=== PATIENT | female | born 1940 | race Caucasian/White ===

== ENCOUNTER 2018-08-19 02:42 | Inpatient (IN) | payer OTHER ==
[2018-08-19] MEDS ORDERED: METHYLPREDNISOLONE 125 MG INJ ONE (03:08)
[2018-08-19] MEDS ORDERED: LEVALBUTEROL 1.25 MG/3 ML NEB ONE (03:09)
[2018-08-19 03:54] LABS: Absolute Lymphocytes (CBC) 2.5 K/uL (0.7-4.9); Absolute Monocytes 0.6 K/uL (0.1-1.3); Absolute Neutrophil 7.1 K/uL (1.8-8.0); Basophils % 0.3 % (0-1.3); Eosinophils % 0.7 % (0-4.4); Hematocrit 41.1 % (36.0-45.0); Lymphocytes % 24.5 % (15.3-44.8); MPV 8.8 fL (7.6-11.3); Monocytes % 5.6 % (3.3-12.3); RBC Red Blood Cell Count 4.22 M/uL (3.86-4.86)
[2018-08-19 04:21] LABS: Magnesium 1.7 mg/dL (1.8-2.4); Troponin (Emerg Dept Use Only) 0.25 ng/mL (0.0-0.045)
[2018-08-19 04:22] LABS: Potassium 2.9 mmol/L (3.5-5.1)
[2018-08-19] MEDS ORDERED: ASPIRIN 81 MG CHEWABLE TABLET ONE (05:33)
[2018-08-19] MEDS ORDERED: MAGNESIUM SULFATE 1 gm IVPB 1 GM/100 ML BAG IV ONE (05:34)
[2018-08-19] MEDS ORDERED: POTASSIUM CL SA 10 MEQ TAB PO ONE (06:16)
[2018-08-19] MEDS ORDERED: FUROSEMIDE 20 MG/ 2ML VIAL ONE (06:16)
--- NOTE | 2018-08-19 06:28 | EDPHYS ---
Physician Documentation [facility] Name: Sita Diana Age: 77 yrs Sex: Female : 1940 Arrival Date: 08/19/2018 Time: 02:43 Bed 15 Private MD: ED Physician Matt Jefferson HPI: 08/19 02:51 This 77 yrs old Female presents to ER via Unassigned with complaints of sob, rn cough. 02:51 The patient has shortness of breath at rest, with light activity. Onset: The rn symptoms/episode began/occurred yesterday. Duration: The symptoms are continuous. The patient's shortness of breath is aggravated by exertion, light activity. Severity of symptoms: At their worst the symptoms were moderate in the emergency department the symptoms are unchanged. The patient has not experienced similar symptoms in the past. Patient reports has been having runny nose and clear cough, worsening sob over last day or so, + long time smoker but quit in 90s, no fever, no chest pain. No known heart or lung problems, has never been admitted to hospital for respiratory problem. . Historical: - Allergies: 02:40 No Known Allergies; jb4 - Home Meds: 02:40 Nexium Oral [Active]; jb4 - PMHx: 02:40 None; jb4 - PSHx: 02:40 bladde surgery.; jb4 - Immunization history:: Adult Immunizations unknown. - Social history:: Smoking status: Patient/guardian denies using tobacco, the patient reports quitting approximately 28 years ago. - Family history:: not pertinent. - Ebola Screening: : No symptoms or risks identified at this time. - Hospitalizations: : No recent hospitalization is reported. ROS: 02:51 Constitutional: Negative for fever, chills, and weight loss, Eyes: Negative for injury, rn pain, redness, and discharge, Neck: Negative for injury, pain, and swelling, Cardiovascular: Negative for chest pain Respiratory: + sob and cough Abdomen/GI: Negative for abdominal pain, nausea, vomiting, diarrhea, and constipation, MS/Extremity: Negative for injury and deformity, Skin: Negative for injury, rash, and discoloration, Neuro: + generalized weakness Exam: 02:51 Constitutional: Thin female, + tachypnea and wet sounding breaths Head/Face: rn Normocephalic, atraumatic. Eyes: Pupils equal round and reactive to light, extra-ocular motions intact. Lids and lashes normal. Conjunctiva and sclera are non-icteric and not injected. Cornea within normal limits. Periorbital areas with no swelling, redness, or edema. ENT: dry MM, no stridor Neck: Trachea midline, no thyromegaly or masses palpated, and no cervical lymphadenopathy. Supple, full range of motion without nuchal rigidity, or vertebral point tenderness. No Meningismus. Cardiovascular: Irregular rhythm, regular rate, no murmur Respiratory: + dminished breath sounds bilaterally, faint exp wheezing, + moderate tachypnea with labored breathing, speaking 4 word sentences Abdomen/GI: soft, non-tender MS/ Extremity: Pulses equal, no cyanosis. Neurovascular intact. Full, normal range of motion. Equal circumference. Neuro: Awake and alert, GCS 15, oriented to person, place, time, and situation. Cranial nerves II-XII grossly intact. Motor strength 5/5 in all extremities. Sensory grossly intact. Vital Signs: 02:40 BP 179 / 107; Pulse 108; Resp 28; Temp 99.7(O); Pulse Ox 89% on R/A; Weight 68.04 kg jb4 (R); Height 5 ft. 5 in. (165.10 cm); Pain 0/10; 03:30 BP 145 / 60; Pulse 102; Resp 34; Pulse Ox 96% on Nebulizer Mask; jb4 04:00 BP 125 / 62; Pulse 94; Resp 30; Pulse Ox 95% on R/A; jb4 04:45 BP 130 / 73; Pulse 102; Resp 24; Pulse Ox 95% on 3 lpm NC; jb4 06:15 BP 136 / 74; Pulse 94; Resp 25; Pulse Ox 94% on 3 lpm NC; jb4 08:00 BP 155 / 87; Pulse 88; Resp 18; Pulse Ox 94% on 3 lpm NC; ph 02:40 Body Mass Index 24.96 (68.04 kg, 165.10 cm) jb4 MDM: 02:48 Patient medically screened. rn 06:26 Differential diagnosis: Bronchitis CHF exacerbation, Chronic Obstructive Pulmonary rn Disease pneumonia, Pneumothorax pulmonary edema, Pulmonary Embolism. Data reviewed: vital signs, nurses notes, lab test result(s), EKG, radiologic studies, and as a result, I will admit patient. Counseling: I had a detailed discussion with the patient and/or guardian regarding: the historical points, exam findings, and any diagnostic results supporting the discharge/admit diagnosis, lab results, radiology results, the need for further work-up and treatment in the hospital. Response to treatment: the patient's symptoms have markedly improved after treatment, and as a result, I will admit patient. Admission orders: after a detailed discussion of the patient's condition and case, the admit orders are written by me. 08/19 02:49 Order name: Blood Culture Adult (2) 08/19 02:49 Order name: BMP; Complete Time: 04:38 rn 08/19 02:49 Order name: CBC with Diff; Complete Time: 04:38 rn 08/19 02:49 Order name: Magnesium; Complete Time: 04:38 08/19 02:49 Order name: NT PRO-BNP; Complete Time: 04:38 08/19 02:49 Order name: Troponin (emerg Dept Use Only); Complete Time: 04:38 08/19 02:50 Order name: Procalcitonin; Complete Time: 04:58 08/19 02:50 Order name: Flu; Complete Time: 04:38 08/19 07:25 Order name: Comprehensive Metabolic Panel [facility] 08/19 07:25 Order name: Comprehensive Metabolic Panel [facility] 08/19 07:25 Order name: Magnesium [facility] 08/19 07:25 Order name: Magnesium [facility] 08/19 07:25 Order name: Phosphorus [facility] 08/19 07:25 Order name: Phosphorus [facility] 08/19 02:49 Order name: XRAY CXR (1 view) 08/19 02:49 Order name: EKG; Complete Time: 02:50 08/19 04:39 Order name: CT Chest For PE Angio 08/19 07:25 Order name: CONS Physician Consult [facility] 08/19 07:25 Order name: NT PRO-BNP [facility] 08/19 07:25 Order name: NT PRO-BNP [facility] 08/19 07:25 Order name: Troponin I [facility] 08/19 07:25 Order name: Troponin I [facility] 08/19 07:25 Order name: Troponin I [facility] 08/19 07:26 Order name: Echo with Doppler [facility] 08/19 02:49 Order name: Cardiac monitoring; Complete Time: 03:09 rn 08/19 02:49 Order name: EKG - Nurse/Tech; Complete Time: 03:09 rn 08/19 02:49 Order name: IV Saline Lock; Complete Time: 03: rn 08/19 02:49 Order name: Labs collected and sent; Complete Time: 03:09 rn 08/19 02:49 Order name: O2 Per Protocol; Complete Time: 03: rn 08/19 02:49 Order name: O2 Sat Monitoring; Complete Time: 03: rn 08/19 07:26 Order name: CONS Physician Consult EDMS 08/19 07:26 Order name: Heart Healthy EDMS Administered Medications: 03:08 Drug: SOLU-Medrol 125 mg Route: IVP; Site: left antecubital; jb4 05:00 Follow up: Response: No adverse reaction jb4 03:08 Drug: Xopenex (3) 1.25 mg Route: Inhalation; jb4 05:00 Follow up: Response: No adverse reaction; Marked relief of symptoms; Wheezing diminishedjb4 05:35 Drug: Magnesium Sulfate 1 grams Route: IVPB; Infused Over: 1 hrs; Site: left jb4 antecubital; 06:38 Follow up: Response: No adverse reaction; IV Status: Completed infusion jb4 05:35 Drug: Aspirin Chewable Tablet 324 mg Route: PO; jb4 06:38 Follow up: Response: No adverse reaction jb4 05:40 Drug: Lasix 20 mg Route: IVP; Site: left antecubital; jb4 06:39 Follow up: Response: No adverse reaction jb4 05:40 Drug: Potassium Chloride 40 mEq Route: PO; jb4 06:39 Follow up: Response: No adverse reaction jb4 Disposition: 08/19/18 06:28 Hospitalization ordered by Kyler Aponte for Inpatient Admission. Preliminary diagnosis are Emphysema, unspecified, Pleural effusion, not elsewhere classified, Suspected pulmonary malignancy, Hypoxemia. - Bed requested for Telemetry/MedSurg (Inpatient). - Status is Inpatient Admission. ph - Condition is Stable. - Problem is new. - Symptoms have improved. UTI on Admission? No Signatures: Dispatcher [employer] EDOK Sahara Best Roman, MD MD rn Hall, Patricia, RN RN ph Bryson, James, RN RN jb4 Corrections: (The following items were deleted from the chart) 07:45 06:28 Hospitalization Ordered by Kyler Aponte MD for Inpatient Admission. Preliminary bd diagnosis is Emphysema, unspecified; Pleural effusion, not elsewhere classified; Suspected pulmonary malignancy; Hypoxemia. Bed requested for Telemetry/MedSurg (Inpatient). Status is Inpatient Admission. Condition is Stable. Problem is new. Symptoms have improved. UTI on Admission? No. rn 08:55 07:45 08/19/2018 06:28 Hospitalization Ordered by Kyler Aponte MD for Inpatient ph Admission. Preliminary diagnosis is Emphysema, unspecified; Pleural effusion, not elsewhere classified; Suspected pulmonary malignancy; Hypoxemia. Bed requested for Telemetry/MedSurg (Inpatient). Status is Inpatient Admission. Condition is Stable. Problem is new. Symptoms have improved. UTI on Admission? No. bd
--- NOTE | 2018-08-19 06:28 | ER ---
Nurse's Notes [facility] Name: Sita Diana Age: 77 yrs Sex: Female : 1940 Arrival Date: 08/19/2018 Time: 02:43 Bed 15 Private MD: Diagnosis: Emphysema, unspecified;Pleural effusion, not elsewhere classified;Suspected pulmonary malignancy;Hypoxemia Presentation: 08/19 02:40 Presenting complaint: EMS states: Pt reported difficulty breathing, denies prior jb4 medical history and just keeps saying I can't breathe I can't breathe. Rales and coarse crackles noted bilaterally. 89% on room air, given 09/01 breathing treatment sats increased to 95%. Transition of care: patient was not received from another setting of care. Onset of symptoms was August 19, 2018. 02:40 Method Of Arrival: EMS: [facility] jb4 02:40 Risk Assessment: Do you want to hurt yourself or someone else? Patient reports no jb4 desire to harm self or others. Initial Sepsis Screen: Does the patient meet any 2 criteria? HR > 90 bpm. Yes Does the patient have a suspected source of infection? No. Patient's initial sepsis screen is negative. Care prior to arrival: Medication(s) given: Albuterol Neb x 1, Atrovent Neb x 1, IV initiated. 20 GA, in the left antecubital area, Oxygen administered. via a nebulizer mask. 02:40 Acuity: CROW 2 jb4 Triage Assessment: 02:40 General: Appears distressed, uncomfortable, Behavior is cooperative, anxious. Pain: jb4 Denies pain. EENT: No signs and/or symptoms were reported regarding the EENT system. Neuro: Level of Consciousness is awake, alert, obeys commands, Oriented to person, place, time, situation. Cardiovascular: Heart tones S1 S2 present Patient's skin is warm and dry. Rhythm is sinus tachycardia. Respiratory: Airway is patent Respiratory effort is even, labored, Respiratory pattern is symmetrical, tachypnea Breath sounds are coarse bilaterally. Breath sounds with wheezes bilaterally. GI: No signs and/or symptoms were reported involving the gastrointestinal system. : No signs and/or symptoms were reported regarding the genitourinary system. Derm: Skin is intact, Skin is pink, warm \\T\\ dry. Musculoskeletal: Circulation, motion, and sensation intact. Historical: - Allergies: 02:40 No Known Allergies; jb4 - Home Meds: 02:40 Nexium Oral [Active]; jb4 - PMHx: 02:40 None; jb4 - PSHx: 02:40 bladde surgery.; jb4 - Immunization history:: Adult Immunizations unknown. - Social history:: Smoking status: Patient/guardian denies using tobacco, the patient reports quitting approximately 28 years ago. - Family history:: not pertinent. - Ebola Screening: : No symptoms or risks identified at this time. - Hospitalizations: : No recent hospitalization is reported. Screenin:40 Abuse screen: Denies threats or abuse. Nutritional screening: No deficits noted. jb4 Tuberculosis screening: No symptoms or risk factors identified. Fall Risk IV access (20 points). Total Martini Fall Scale indicates No Risk (0-24 pts). Assessment: 02:40 General: see triage assessment.. jb4 03:39 Reassessment: No changes from previously documented assessment. Reassessment: Patient jb4 and/or family updated on plan of care and expected duration. Pain level reassessed. Family at the bedside. Cardiovascular: Patient's skin is warm and dry. Rhythm is sinus tachycardia. Respiratory: Airway is patent Respiratory effort is even, labored, Respiratory pattern is symmetrical, tachypnea. 04:02 Reassessment: Patient and/or family updated on plan of care and expected duration. Pain jb4 level reassessed. General: Appears in no apparent distress. comfortable, Pt O2 at 96% on neb mask. Desats to 91% on room air. Place on 3 L NC. Sating at 95%.. Cardiovascular: Patient's skin is warm and dry. Rhythm is sinus tachycardia. Cardiovascular: Respiratory: Airway is patent Respiratory effort is even, labored, Respiratory pattern is symmetrical, tachypnea. Respiratory: Breath sounds are clear in left posterior upper lobe, right posterior upper lobe, left posterior lower lobe, right posterior middle lobe and right posterior lower lobe Breath sounds with rhonchi in right upper lobe, left upper lobe, right middle lobe, left lower lobe and right lower lobe. 05:00 Reassessment: Patient appears in no apparent distress at this time. Patient and/or jb4 family updated on plan of care and expected duration. Pain level reassessed. Patient is alert, oriented x 3, equal unlabored respirations, skin warm/dry/pink. Pt to CT. Cardiovascular: Patient's skin is warm and dry. Rhythm is sinus tachycardia. Respiratory: Airway is patent Respiratory effort is even, unlabored, Respiratory pattern is symmetrical, tachypnea. 06:39 Reassessment: Patient appears in no apparent distress at this time. Patient and/or jb4 family updated on plan of care and expected duration. Pain level reassessed. Patient is alert, oriented x 3, equal unlabored respirations, skin warm/dry/pink. Dr. Aponte is at the bedside. 07:30 Reassessment: Patient appears in no apparent distress at this time. Patient and/or ph family updated on plan of care and expected duration. Pain level reassessed. Patient is alert, oriented x 3, equal unlabored respirations, skin warm/dry/pink. Pt assisted in changing brief, noted to be saturated in urine, pt states, " I have a leaking problem.". 08:35 Reassessment: Patient appears in no apparent distress at this time. Patient and/or ph family updated on plan of care and expected duration. Pain level reassessed. Patient is alert, oriented x 3, equal unlabored respirations, skin warm/dry/pink. Report called to 4th floor, pt to be taken to room after breakfast. Vital Signs: 02:40 BP 179 / 107; Pulse 108; Resp 28; Temp 99.7(O); Pulse Ox 89% on R/A; Weight 68.04 kg 4 (R); Height 5 ft. 5 in. (165.10 cm); Pain 0/10; 03:30 BP 145 / 60; Pulse 102; Resp 34; Pulse Ox 96% on Nebulizer Mask; jb4 04:00 BP 125 / 62; Pulse 94; Resp 30; Pulse Ox 95% on R/A; jb4 04:45 BP 130 / 73; Pulse 102; Resp 24; Pulse Ox 95% on 3 lpm NC; jb4 06:15 BP 136 / 74; Pulse 94; Resp 25; Pulse Ox 94% on 3 lpm NC; jb4 08:00 BP 155 / 87; Pulse 88; Resp 18; Pulse Ox 94% on 3 lpm NC; ph 02:40 Body Mass Index 24.96 (68.04 kg, 165.10 cm) [facility] ED Course: 02:40 Arm band placed on left wrist. jb4 02:40 Patient has correct armband on for positive identification. Bed in low position. Call jb4 light in reach. Side rails up X 1. transformer mechanic on. Pulse ox on. NIBP on. 02:40 Maintain EMS IV. Dressing intact. Good blood return noted. Site clean \\T\\ dry. Gauge \\T\\ ramila 4 site: 20g left AC. IV is intact, Flushed left antecubital saline lock with 5 ml normal saline. 02:43 Patient arrived in ED. al2 02:48 Matt Jefferson MD is Attending Physician. rn 02:57 Maco Barnes RN is Primary Nurse. jb4 03:13 Triage completed. jb4 03:55 X-ray completed. Portable x-ray completed in exam room. Patient tolerated procedure kw well. 03:57 XRAY CXR (1 view) In Process Unspecified. EDMS 04:20 Notified ED physician of a critical lab result(s). K+ 2.9. jb4 05:23 CT Chest For PE Angio In Process Unspecified. EDMS 06:27 Kyler Aponte MD is Hospitalizing Provider. rn 07:36 Attending Physician role handed off by Matt Jefferson MD kdr 07:36 Dominick Young MD is Attending Physician. kdr 07:37 Matt Jefferson MD is Attending Physician. kdr 08:36 No provider procedures requiring assistance completed. Patient admitted, IV remains in ph place. Administered Medications: 03:08 Drug: SOLU-Medrol 125 mg Route: IVP; Site: left antecubital; jb4 05:00 Follow up: Response: No adverse reaction jb4 03:08 Drug: Xopenex (3) 1.25 mg Route: Inhalation; jb4 05:00 Follow up: Response: No adverse reaction; Marked relief of symptoms; Wheezing diminishedjb4 05:35 Drug: Magnesium Sulfate 1 grams Route: IVPB; Infused Over: 1 hrs; Site: left jb4 antecubital; 06:38 Follow up: Response: No adverse reaction; IV Status: Completed infusion jb4 05:35 Drug: Aspirin Chewable Tablet 324 mg Route: PO; jb4 06:38 Follow up: Response: No adverse reaction jb4 05:40 Drug: Lasix 20 mg Route: IVP; Site: left antecubital; jb4 06:39 Follow up: Response: No adverse reaction jb4 05:40 Drug: Potassium Chloride 40 mEq Route: PO; jb4 06:39 Follow up: Response: No adverse reaction jb4 Outcome: 06:28 Decision to Hospitalize by Provider. rn 08:36 Admitted to Tele accompanied by tech, family with patient, via stretcher, room 430, ph with oxygen. 08:36 Condition: stable 08:55 Patient left the ED. ph Signatures: Dispatcher [employer] EDMS Dominick Young MD MD kdr Nieto, Roman, MD MD rn Whitley, Kimberlee kw Hall, Patricia, RN RN ph Maco Barnes RN RN jbAngelina Rose
[2018-08-19] MEDS ORDERED: ACETAMINOPHEN 500 MG TAB PO PRN (07:18)
[2018-08-19] MEDS ORDERED: MAGNESIUM HYDROXIDE 8% 30 ML PO PRN (07:18)
[2018-08-19] MEDS ORDERED: ONDANSETRON 4 MG/2 ML VIAL IV PRN (07:18)
[2018-08-19] MEDS ORDERED: ALBUTEROL 2.5 MG/3 ML NEB SOL NEB PRN (07:18)
[2018-08-19] MEDS ORDERED: IPRATROPIUM BROM 0.5MG/2.5ML NEB PRN (07:18)
--- NOTE | 2018-08-19 07:41 | EKG ---
Test Date: 2018-08-19 Test Time: 02:46:27 Sql Data Architect: MEASUREMENT RESULTS: Intervals: Rate: 109 MA: 130 QRSD: 84 QT: 346 QTc: 465 [place]: P: 68 MA: 130 QRS: -45 T: 121 INTERPRETIVE STATEMENTS: Sinus tachycardia with premature atrial and ventricular complexes Left axis deviation Inferior infarct, age undetermined Anterior infarct, age undetermined ST & T wave abnormality, consider lateral ischemia Abnormal ECG Compared to ECG 04/15/2014 07:06:49 Left-axis deviation now present Myocardial infarct finding now present Sinus rhythm no longer present PVC and PAC s are now present Electronically Signed On 08-19-18 07:40:47 ROTATIONAL MOULDING OPERATOR by Matt Temple
--- NOTE | 2018-08-19 07:42 | EKG ---
Test Date: 2018-08-19 Test Time: 02:47:24 Revenue Settlements Administrator: MG MEASUREMENT RESULTS: Intervals: Rate: 108 DC: 138 QRSD: 86 QT: 368 QTc: 493 [place]: P: 80 DC: 138 QRS: -42 T: 19 INTERPRETIVE STATEMENTS: Sinus tachycardia with occasional premature ventricular complexes Possible Left atrial enlargement Left axis deviation nferior infarct, age undetermined Anterior infarct, age undetermined ST & T wave abnormality, consider lateral ischemia Abnormal ECG Compared to ECG 08/19/2018 02:46:27 PAC s are no longer present Electronically Signed On 08-19-18 07:41:25 PUFFER TENDER by Matt Temple
--- NOTE | 2018-08-19 07:52 | P.HP ---
Certification for Inpatient Patient admitted to: Inpatient With expected LOS: >2 Midnights Patient will require the following post-hospital care: None Practitioner: I am a practitioner with admitting privileges, knowledge of patient current condition, hospital course, and medical plan of care. Services: Services provided to patient in accordance with Admission requirements found in Title 42 Section 412.3 of the Code of Federal Regulations Patient History Date of Service: 08/19/18 Reason for admission: Shortness of breath History of Present Illness: Patient is a 77-year-old female who came into the hospital with difficulty breathing. Patient respiratory status has worsened over the last 2-3 days. She has had issues with her breathing but really has not followed up with a florist helper or a irrigator gravity flow. Her workup in the ER revealed congestive heart failure exacerbation. Patient had bilateral pleural effusions as well. Her CT scan revealed 2 pulmonary nodules. These are concerning for malignancy. Will go ahead and admit the patient to the hospital for new onset congestive heart failure exacerbation. She will get an echocardiogram and cardiology consultation. Will also get a pulmonary consultation. Patient was admitted to the hospital for further workup which will require 48 or more hrs for evaluation. Allergies No Known Drug Allergies Allergy (Unverified 08/16/14 20:57) Unknown Home Medications: Donepezil HCl 23 mg PO DAILY 04/14/14 Esomeprazole Mag Trihydrate [Nexium] 40 mg PO DAILY 04/14/14 Hyoscyamine Sulfate [Levsin TAB*] 0.125 mg PO DAILY PRN 04/14/14 Metoprolol Tartrate [Lopressor*] 50 mg PO BID 04/14/14 Pravastatin [Pravachol*] 40 mg PO DAILY 04/14/14 Rivaroxaban [Xarelto*] 20 mg PO DAILY 04/14/14 - Past Medical/Surgical History Diabetic: No -: Orthostatics hypotension -: Dyslipidemia -: Urinary incontinence -: Vertigo -: contusion to left hand -: Dementia -: Cystoscopy and bladder lift/bladder suspension -: hysterectomy -: Cholecystectomy - Family History Father Family History: Reviewed- Non-Contributory - Social History Smoking Status: Former smoker Alcohol use: No CD- Drugs: No Caffeine use: Yes Review of Systems 10-point ROS is otherwise unremarkable Physical Examination - Vital Signs Temperature: 98 F Blood Pressure: 110/70 Pulse: 99 Respirations: 24 Pulse Ox (%): 92 - Physical Exam General: Alert, In no apparent distress, Oriented x3 HEENT: Atraumatic, PERRLA, Mucous membr. moist/pink, EOMI, Sclerae nonicteric Neck: Supple, 2+ carotid pulse no bruit, No LAD, JVD distended Respiratory: Diminished, Crackles/rales, Expiratory wheezes Cardiovascular: Regular rate/rhythm, Normal S1 S2, Systolic murmur Gastrointestinal: Normal bowel sounds, Soft and benign, Non-distended, W/out succussion splash, No tenderness Musculoskeletal: No clubbing, No tenderness, Swelling Integumentary: No rashes, Tenderness/swelling (Bilateral lower extremity edema) Neurological: Normal speech, Normal tone, Sensation intact, Cranial nerves 3-12 intact, Normal affect, Abnormal gait, Abnormal strength Lymphatics: No axilla or inguinal lymphadenopathy - Studies Laboratory Data (last 24 hrs) 08/19/18 03:30: WBC 10.3, Hgb 13.8, Hct 41.1, Plt Count 197 08/19/18 03:30: Sodium 144, Potassium 2.9 L*, BUN 9, Creatinine 1.20, Glucose 224 H, Magnesium 1.7 L Microbiology Data (last 24 hrs): 08/19/18 03:00 Nasopharnyx Influenza Type A Antigen Screen - Final 08/19/18 03:00 Nasopharnyx Influenza Type B Antigen Screen - Final Assessment & Plan - Problems (Diagnosis) (1) Acute exacerbation of CHF (congestive heart failure) Current Visit: Yes Status: Acute (2) Bilateral pleural effusion Current Visit: Yes Status: Acute (3) Pulmonary nodule Current Visit: Yes Status: Acute (4) Tobacco abuse Current Visit: Yes Status: Acute (5) Hypokalemia Current Visit: Yes Status: Acute (6) Elevated troponin Current Visit: Yes Status: Acute - Plan 1. Echocardiogram; LV function 2. Continue with ARB 3. Pulmonary consultation outpt follow-up 4. Cardiology consultation for new onset CHF 5. IV aggressive diuresis 6. Strict I's and O's 7. Repeat CXR 8. Daily weights 9. Nebs, steroids, and antibiotics - Advance Directives Does patient have a Living Will: No Does patient have a Durable POA for Healthcare: No - Code Status/Comfort Care Code Status Assessed: Yes Code Status: Full Code Critical Care: No Time Spent Managing PTS Care (In Minutes): 50
--- NOTE | 2018-08-19 08:51 | RAD REPORT ---
EXAM DESCRIPTION: RAD - Chest Single View - 08/19/2018 3:58 am CLINICAL HISTORY: Difficulty breathing, dyspnea COMPARISON: April 2014 TECHNIQUE: AP portable chest image was obtained 0258 hours . FINDINGS: Patient has a baseline of interstitial lung disease. Interstitial markings are diffusely p rominent throughout both lung mcginnis indicating the diffuse interstitial edema or infiltrate process. Patient has focal opacification in the medial right base and right apex suspicious for pneumonia. Bi lateral pleural effusions are present. Left base opacification could be atelectasis or additional sit e of pneumonia. Heart size is upper normal. Vasculature is not clearly outside of normal range. Trach ea is midline. No pneumothorax. No acute bony abnormality seen. No acute aortic findings suspected. IMPRESSION: Bilateral pleural effusions with infiltrate and/ or atelectasis in the left base. Suspected pneumonia in the right apex and right lung base. Overall interstitial edema or infiltrate pattern throughout the lung mcginnis.
--- NOTE | 2018-08-19 08:58 | RAD REPORT ---
EXAM DESCRIPTION: CT - Chest For Pe Angio - 08/19/2018 6:26 am CLINICAL HISTORY: Dyspnea, difficulty breathing A preliminary report was provided at the time of the study and reviewed prior to final report. COMPARISON: Portable chest same date TECHNIQUE: Dynamically enhanced 3 mm thick images of the chest were obtained during administration o f approximately 150mL Isovue 370 IV contrast. Coronal and oblique MIP reconstruction images were gene rated and reviewed. Exam utilizes a protocol to evaluate the pulmonary arterial tree. All CT scans are performed using dose optimization technique as appropriate and may include automated exposure control or mA/KV adjustment according to patient size. FINDINGS: No pulmonary emboli are identified. The aorta as imaged shows no acute or suspicious finding. No pericardial thickening or effusion. Moderate bilateral pleural effusions are present with partial atelectasis of the each lower lobe. The re is additional patchy interstitial and alveolar opacification in the left lower lobe. No endobronch ial lesion. In the superior aspect right upper lobe (image 18/ 76) there is a 2.7 x 1.9 centimeter ar ea of parenchymal opacification. Margins are irregular. No calcification, fat or cavitation. In the s uperior left upper lobe there is a 12 millimeter x 12 millimeter area of irregular opacification (sampson ge 17/76). A second left upper lobe area of opacification 12 x 12 is seen as well (image 22/76). Interstitial markings are prominent throughout the lung mcginnis. Emphysema changes are present in the mid and upper lung mcginnis. No pneumothorax. No pleural based mass. No mediastinal or hilar suspicious masses. No chest wall masses or abnormal axillary lymphadenopathy. IMPRESSION: No pulmonary emboli identified. Moderate-size bilateral pleural effusions with partial atelectasis of each lower lobe. Focal bilateral upper lobe focal opacification. In the acute clinical setting, these are likely areas of pneumonia. Malignant mass cannot be excluded and continued follow-up is needed with re-evaluation in 4-6 weeks after medical management. Suspected patchy left lower lobe pneumonia and the patient has an overall interstitial edema or infil trate pattern in both lung mcginnis.
[2018-08-19] MEDS: ASPIRIN EC 81 MG TAB PO SCH (09:00)
[2018-08-19] MEDS ORDERED: FUROSEMIDE 20 MG/ 2ML VIAL IV ONE (12:28)
--- NOTE | 2018-08-19 12:36 | P.CNS ---
Date of Consult: 08/19/18 Reason for Consult: Bilateral pleural effusion right upper lobe opacity Chief Complaint: Shortness of breath History of Present Illness: Patient is 77 years of age with no prior cardiopulmonary problems admitted with shortness of breath she has been short of breath off and on for the past week became worse over the past 1 day denies any fever chills has intermittent cough patient quit smoking in the she sees Dr. whitehead on a p.r.n. basis and is not currently taking any medication also has intermittent ankle edema Allergies No Known Drug Allergies Allergy (Unverified 08/16/14 20:57) Unknown - Past Medical/Surgical History Diabetic: No -: Orthostatics hypotension -: Dyslipidemia -: Urinary incontinence -: Vertigo -: contusion to left hand -: Dementia -: Cystoscopy and bladder lift/bladder suspension -: hysterectomy -: Cholecystectomy - Family History Father Family History: Reviewed- Non-Contributory - Social History Alcohol use: No CD- Drugs: No Caffeine use: Yes Review of Systems 10-point ROS is otherwise unremarkable General: Weakness Respiratory: Shortness of Breath Cardiovascular: Edema Physical Examination Temp Pulse Resp BP Pulse Ox 98.4 F 88 26 H 143/83 H 95 08/19/18 10:06 08/19/18 10:06 08/19/18 10:06 08/19/18 10:06 08/19/18 10:06 General: Alert, Oriented x3 HEENT: Atraumatic Neck: Supple Respiratory: Clear to auscultation bilaterally, Diminished Cardiovascular: Regular rate/rhythm, Normal S1 S2, Edema (Minimal edema) Laboratory Data (last 24 hrs) 08/19/18 03:30: WBC 10.3, Hgb 13.8, Hct 41.1, Plt Count 197 08/19/18 03:30: Sodium 144, Potassium 2.9 L*, BUN 9, Creatinine 1.20, Glucose 224 H, Magnesium 1.7 L - Problems (1) Bilateral pleural effusion Current Visit: Yes Status: Acute Plan: Patient is 77 years of age admitted with acute shortness of breath for prior history of cardiopulmonary problems she does not take any medications at home for diabetes hypertension she quit smoking in the early patient has bilateral pleural effusion with a right upper lobe opacity patient is hypokalemic BNP is elevated CBC normal added some diuretic spironolactone Lasix echocardiogram pending capacity needs to be followed up with another is chest x- ray or CT scan
[2018-08-19] MEDS: ENOXAPARIN 40 MG/0.4 ML SQ SCH (13:02)
[2018-08-19] MEDS: POTASSIUM 25 MEQ EFFERV TAB PO SCH (13:03)
[2018-08-19] MEDS: FUROSEMIDE 40 MG/4 ML VIAL IV SCH ×2 (13:03→16:41)
[2018-08-19] MEDS: METOPROLOL TAR 50 MG TAB PO SCH ×2 (13:06→21:00)
[2018-08-19] MEDS: SPIRONOLACTONE 25 MG TABLET PO SCH ×2 (13:11→21:00)
--- NOTE | 2018-08-19 13:19 | CON ---
CARDIOLOGY CONSULT Chief Complaint: Dyspnea. There has also been some chest pain. History Of Present Illness: Ms. Diana has been having chest pain on and off for several years. She has been short of breath for about a week. She came to the hospital and has EKG evidence of an old GA and chest x-ray evidence of congestive heart failure, bilateral pleural effusions, both are small to moderate, the left is probably a little bit larger. Pneumonia may be present at the right lung ba se or it could be a mass. The patient has used no tobacco for more than 30 years. She does not have a history of coronary heart disease. I have seen her in the remote past, but it has been many years since I have seen her. Medications: She was on no medications as an outpatient. Review of Systems: Rather unremarkable other than the things we have covered in the history of present illness. Physical Examination: General: She is 5 feet 5 inches. Appears to have close to normal body mass index. Vital Signs: Temperature is 98, blood pressure 110/70, pulse 99, and O2 saturation 94% on 3 L nasal cannula. Lungs: Reveal sparse crackles, but they are diffuse. Heart: Within normal limits. Abdomen: Soft. Extremities: Trace edema. Distal pulses are normal. Diagnostic Data: The troponin level is elevated. Plan: I think, an echocardiogram and pharmacologic stress test would be very good for us to try and learn what is going on with Ms. Diana. I suspect she has some CAD, has had an GA and has a depresse d ejection fraction and now has a systolic heart failure, but we will see what our tests tell us afte r running more. She of course will need to be on diuretics, angiotensin receptor juan a and beta bl ocker and she needs to have her potassium corrected. It is all underway at the time of this dictatio antonio SALAMANCA/BELKIS Voice ID: [id number] Report ID: [id number]
--- NOTE | 2018-08-19 15:49 | ECHO ---
HEIGHT: 5 ft 2 in WEIGHT: 127 lb 0 oz DATE OF STUDY: [id number] REFER DR: Kyler Aponte MD 2-DIMENSIONAL: YES M.MODE: YES DOPPLER: YES COLOR FLOW: YES TDS: NO PORTABLE: NO DEFINITY: NO BUBBLE STUDY: NO DIAGNOSIS: CONGESTIVE HEART FAILURE CARDIAC HISTORY: CATHERIZATION: NO SURGERY: NO PROSTHETIC VALVE: NO PACEMAKER: NO MEASUREMENTS (cm) DIASTOLIC (NORMALS) SYSTOLIC (NORMALS) IVSd 1.0 (0.6-1.2) LA Diam 3.8 (1.9-4.0) LVEF 40% LVIDd 4.2 (3.5-5.7) LVIDs 3.4 (2.0-3.5) %FS 19% LVPWd 1.0 (0.6-1.2) Ao Diam 2.4 (2.0-3.7) 2 DIMENSIONAL ASSESSMENT: RIGHT ATRIUM: NORMAL LEFT ATRIUM: DILATED RIGHT VENTRICLE: NORMAL LEFT VENTRICLE: NORMAL TRICUSPID VALVE: NORMAL MITRAL VALVE: NORMAL PULMONIC VALVE: NORMAL AORTIC VALVE: NORMAL PERICARDIAL EFFUSION: NONE AORTIC ROOT: NORMAL LEFT VENTRICULAR WALL MOTION: ANTERIOR, APICAL, SEPTAL HYPOKINESIS. DOPPLER/COLOR FLOW: MILD AORTIC, MITRAL AND TRCICUSPID REGURGITATION. ESTIMATED RIGHT VENTRICULAR SYSTOLIC PRESSURE 40mmHg (MILD PULMONARY HYPERTENSION). COMMENTS: DEPRESSED LEFT VENTRICULAR EJECTION FRACTION WITH WALL MOTION ABNORMALITY. DILATED LEFT ATRIUM. MILD AORTIC, MITRAL AND TRICUSPID REGURGITATION. MILD PULMONARY HYPERTENSION. LARGE LEFT PLEURAL EFFUSION. TECHNOLOGIST: BAKARI DAVISON
[2018-08-20 04:05] LABS: Absolute Lymphocytes (CBC) 1.4 K/uL (0.7-4.9); Absolute Monocytes 1.2 K/uL (0.1-1.3); Basophils % 0.1 % (0-1.3); Hematocrit 38.8 % (36.0-45.0); MPV 8.8 fL (7.6-11.3); Monocytes % 9.7 % (3.3-12.3); RBC Red Blood Cell Count 4.02 M/uL (3.86-4.86)
[2018-08-20 04:34] LABS: Albumin 3.6 g/dL (3.4-5.0); Bilirubin Total 0.9 mg/dL (0.2-1.0); Magnesium 2.1 mg/dL (1.8-2.4); Phosphorus 3.6 mg/dL (2.5-4.9); Potassium 4.9 mmol/L (3.5-5.1); Protein, Total 6.6 g/dL (6.4-8.2)
[2018-08-20] MEDS ORDERED: REGADENOSON 0.4 MG/5 ML SYR IV ONE (07:43)
[2018-08-20] MEDS ORDERED: INFLUENZA VACCINE (for 3y+) 0.5 ML DOSE IMVAC ONE (09:00)
[2018-08-20] MEDS: POTASSIUM 25 MEQ EFFERV TAB PO SCH (11:16)
[2018-08-20] MEDS: ASPIRIN EC 81 MG TAB PO SCH (11:17)
[2018-08-20] MEDS: SPIRONOLACTONE 25 MG TABLET PO SCH ×2 (11:17→22:43)
[2018-08-20] MEDS ORDERED: NITROGLYCERIN 0.4 MG/TAB SL ONE (12:41)
--- NOTE | 2018-08-20 12:54 | TREADPHA ---
DX: CORONARY ARTERY DISEASE Date of Study: 08/20/18 Ht: 5 2 Wt: 115 lb 0 oz Consulting Physician: BEKAH MEDICATIONS: HISTORY: 77 YEAR OLD WOMAN WITH CONGESTIVE HEART FAILURE, SHORTNESS OF BREATH, CHEST PAIN. PHYSICIAL EXAMINATION: RESTING B.P.: 127/84 RESTING H.R.: 73 RESTING EKG: SINUS RHYTHM, ELEVATED QT, ST DEPRESSION CONSISTENT WITH ANTERIOR ISCHEMIA. PROTOCOL: LEXISCAN EXERCISE TIME: 3:30 B.P. AT [place]AK STRESS: 124/82 IMPRESSION: LEXISCAN STRESS TEST PERFORMED. CARDIOLITE INJECTED PER PROTOCOL. NO VENTRICULAR TACHYCARDIA OR CHEST PAIN NOTED. SEE NUCLEAR MEDICINE REPORT. 1234 ATYPICAL ARM PAIN. NITRO 0.4 MILLIGRAMS SUBLINGUAL. PAIN RELIEVED. DR GODFREY AT BEDSIDE.
[2018-08-20] MEDS: FUROSEMIDE 40 MG/4 ML VIAL IV SCH ×2 (13:21→17:16)
[2018-08-20] MEDS: METOPROLOL TAR 50 MG TAB PO SCH ×2 (13:21→22:43)
--- NOTE | 2018-08-20 13:26 | RAD REPORT ---
EXAM DESCRIPTION: NM - Rest Stress Cardiac Imaging - 08/20/2018 1:18 pm CLINICAL HISTORY: CP Chest pain. COMPARISON: No comparisons TECHNIQUE: The patient was administered approximately 10mCi of Tc 99m Sestamibi prior to resting SPE CT imaging of the heart. The patient was then administered approximately 30 mCi of Tc 99m Sestamibi f ollowing exercise or pharmacologic stress. Multiplanar SPECT images were reviewed. FINDINGS: No stress induced ischemic defect is seen to suggest stress induced ischemia. Mildly dimin ished activity seen in the anteroapical region on both rest and stress imaging. The end diastolic volume is 126 ml, the end systolic volume is 84 ml, and the ejection fraction is 33 %. IMPRESSION: No stress induced ischemia. Mildly reduced ejection fraction of 33%.
[2018-08-20] MEDS: ENOXAPARIN 40 MG/0.4 ML SQ SCH (13:32)
--- NOTE | 2018-08-20 16:44 | P.PN ---
Subjective Date of Service: 08/20/18 Chief Complaint: Shortness of breath Patient seen and examined at bedside with RN. Chart reviewed. Case discussed with cardiology and pulmonology at this time. Patient is pending stress test this morning. No complaints to offer overnight. Review of Systems 10-point ROS is otherwise unremarkable Physical Examination - Vital Signs Temperature: 98.1 F Blood Pressure: 110/58 Pulse: 72 Respirations: 18 Pulse Ox (%): 98 - Physical Exam General: Alert, In no apparent distress HEENT: Atraumatic, PERRLA, EOMI Neck: Supple, JVD distended Respiratory: Normal air movement, Crackles/rales Cardiovascular: Regular rate/rhythm, Normal S1 S2 Gastrointestinal: Normal bowel sounds, No tenderness Musculoskeletal: No tenderness Integumentary: No rashes Neurological: Normal speech, Normal tone, Normal affect Lymphatics: No axilla or inguinal lymphadenopathy - Studies Medications List Reviewed: Yes Assessment And Plan - Current Problems (Diagnosis) (1) Acute exacerbation of CHF (congestive heart failure) Onset Date: 08/20/18 Current Visit: Yes Status: Acute Plan: Patient with shortness of breath with acute exacerbation of her CHF secondary to noncompliance with diet and medication -started on IV Lasix here in the hospital. -currently on beta-juan a, CHRISTOPH-inhibitor, spironolactone -echocardiogram always depressed ejection fraction along with diastolic dysfunction -cardiology consulted appreciated recommendations at this time -L fluid restriction and no sodium diet Qualifiers: Heart failure type: combined systolic and diastolic Qualified Code(s): I50.43 - Acute on chronic combined systolic (congestive) and diastolic ( congestive) heart failure (2) Bilateral pleural effusion Onset Date: 08/20/18 Current Visit: Yes Status: Acute Plan: Left Worse than Right -IV Lasix for now -Pulmonology consulted. Appreciate Reccs -If no improvement will consider drain (3) Elevated troponin Onset Date: 08/20/18 Current Visit: Yes Status: Acute Plan: Troponin x 2 elevated. With Nonspecific EKG changes -Cardiology consulted. Appreciated recommendations at this time -echocardiogram with ejection fraction of 40% along with tricuspid mitral and aortic valve regurg along with impaired relaxation of the left ventricle -currently awaiting stress -on ACS protocol along with beta-juan a, Christoph inhibitor, Lasix, aspirin, statin (4) Tobacco abuse Onset Date: 08/20/18 Current Visit: Yes Status: Chronic (5) Dementia Current Visit: No Status: Chronic Qualifiers: Dementia type: Alzheimer's disease Alzheimer's disease onset: other onset Dementia behavioral disturbance: without behavioral disturbance Qualified Code(s): G30.8 - Other Alzheimer's disease; F02.80 - Dementia in other diseases classified elsewhere without behavioral disturbance Discharge Plan: Home Plan to discharge in: 48 Hours - Code Status/Comfort Care Code Status Assessed: Yes Critical Care: No
--- NOTE | 2018-08-21 04:00 | PN ---
Date of Progress Note: 08/20/2018 Subjective: Ms. Diana was admitted to Dr. Aponte's service on 08/19/2018 because of congestive heart failure. She saw Dr. Temple on 08/19/2018. He ordered an echocardiogram and a Lexiscan. Her echoca rdiogram showed an ejection fraction about 40%. Her Lexiscan showed no stress-induced ischemia with mildly reduced ejection fraction of 33%. The patient is asymptomatic. She can certainly go home whe never it is okay with Dr. Aponte. She has a large left pleural effusion on echocardiography. Her pres ent regimen includes metoprolol, Lasix, as well as lisinopril and Aldactone. She is also on some alb uterol inhaler and Lovenox. She is still getting her Lasix IV. I agree with her present regimen. S he is not a candidate for heart catheterization without any ischemia on stress test. We will continu e her present regimen for now. DEJAN/BELKIS Voice ID: [id number] Report ID: [id number]
[2018-08-21 05:11] VITALS: TEMP 97.9
[2018-08-21 06:12] LABS: Absolute Lymphocytes (CBC) 2.3 K/uL (0.7-4.9); Absolute Monocytes 0.7 K/uL (0.1-1.3); Absolute Neutrophil 5.8 K/uL (1.8-8.0); Basophils % 0.9 % (0-1.3); Eosinophils % 1.7 % (0-4.4); Hematocrit 39.3 % (36.0-45.0); Lymphocytes % 25.3 % (15.3-44.8); Monocytes % 7.8 % (3.3-12.3); RBC Red Blood Cell Count 4.11 M/uL (3.86-4.86)
[2018-08-21 06:34] LABS: Magnesium 2.3 mg/dL (1.8-2.4); Potassium 3.7 mmol/L (3.5-5.1); Troponin I 0.25 ng/mL (0.0-0.045)
--- NOTE | 2018-08-21 07:01 | EKG ---
Test Date: 2018-08-20 Test Time: 17:53:00 Cryptologist: LYNN MEASUREMENT RESULTS: Intervals: Rate: 61 TN: 134 QRSD: 98 QT: 626 QTc: 630 [place]: P: 49 TN: 134 QRS: -31 T: 228 INTERPRETIVE STATEMENTS: Sinus rhythm with occasional premature ventricular complexes Left axis deviation Minimal voltage criteria for LVH, may be normal variant Anteroseptal infarct, age undetermined Marked ST abnormality, possible inferior subendocardial injury Prolonged QT Abnormal ECG Compared to ECG 08/19/2018 02:47:24 Left ventricular hypertrophy now present Prolonged QT interval now present Sinus tachycardia no longer present Possible ischemia no longer present Myocardial infarct finding still present ST (T wave) deviation still present Electronically Signed On 08-21-18 06:52:11 MUSIC EDUCATION DIRECTOR by Reynaldo Parker
[2018-08-21] MEDS: POTASSIUM 25 MEQ EFFERV TAB PO SCH (08:32)
[2018-08-21] MEDS: SPIRONOLACTONE 25 MG TABLET PO SCH (08:33)
[2018-08-21] MEDS: FUROSEMIDE 40 MG/4 ML VIAL IV SCH (08:34)
[2018-08-21] MEDS: METOPROLOL TAR 50 MG TAB PO SCH (08:34)
[2018-08-21] MEDS: ASPIRIN EC 81 MG TAB PO SCH (08:34)
[2018-08-21] MEDS ORDERED: LISINOPRIL 10 MG TAB PO SCH (09:00)
[2018-08-21] MEDS ORDERED: ENOXAPARIN 40 MG/0.4 ML SQ SCH (09:00)
[2018-08-21] MEDS ORDERED: ENOXAPARIN 30 MG/0.3 ML SQ SCH (09:00)
[2018-08-21] MEDS ORDERED: MAGNESIUM SULFATE 1 gm IVPB 1 GM/100 ML BAG IV ONE (09:09)
[2018-08-21 09:47] LABS: Absolute Lymphocytes (CBC) 2.6 K/uL (0.7-4.9); Absolute Monocytes 0.8 K/uL (0.1-1.3); Absolute Neutrophil 6.3 K/uL (1.8-8.0); Eosinophils % 1.4 % (0-4.4); Hematocrit 42.5 % (36.0-45.0); Lymphocytes % 26.4 % (15.3-44.8); MPV 9.3 fL (7.6-11.3); Monocytes % 8.5 % (3.3-12.3); RBC Red Blood Cell Count 4.42 M/uL (3.86-4.86)
[2018-08-21 10:05] LABS: Albumin 3.9 g/dL (3.4-5.0); Magnesium 2.3 mg/dL (1.8-2.4); Phosphorus 3.6 mg/dL (2.5-4.9); Potassium 4.3 mmol/L (3.5-5.1); Protein, Total 7.2 g/dL (6.4-8.2)
--- NOTE | 2018-08-21 10:34 | PN ---
Date of Progress Note: 08/21/2018 Subjective: Ms. Diana had been admitted for congestive heart failure. Echocardiogram showed an eje ction fraction of 44%. A Lexiscan yesterday showed an ejection fraction of 33% with no stress-induce d ischemia, mostly scar tissue. Overnight, the patient did well from a breathing standpoint, but she had a long run of ventricular tachycardia while she was asleep, no hemodynamic compromise. Case was discussed with the patient, I think she still despite her negative stress test. She is really a can didate for a heart catheterization and possible defibrillator placement eventually. She wants to thi nk about it. She is presently on beta-blockers, Lasix, and lisinopril. Potassium and magnesium are pending. She has a long QT and is not really a candidate for amiodarone. She will make a decision a nd let me know later. DEJAN/BELKIS Voice ID: [id number] Report ID: [id number]
[2018-08-21] MEDS ORDERED: AMIODARONE HCL 150 MG in D5W 100 ML IV STA (13:01)
[2018-08-21 13:02] LABS: Absolute Lymphocytes (CBC) 1.8 K/uL (0.7-4.9); Absolute Monocytes 0.7 K/uL (0.1-1.3); Absolute Neutrophil 7.4 K/uL (1.8-8.0); Basophils % 0.5 % (0-1.3); Eosinophils % 1.2 % (0-4.4); Hematocrit 42.1 % (36.0-45.0); Lymphocytes % 17.6 % (15.3-44.8); MPV 9.1 fL (7.6-11.3); Monocytes % 6.7 % (3.3-12.3); RBC Red Blood Cell Count 4.39 M/uL (3.86-4.86)
--- NOTE | 2018-08-21 13:09 | RAD REPORT ---
EXAM DESCRIPTION: Fernando Single View08/21/2018 1:04 pm CLINICAL HISTORY: Shortness of breath COMPARISON: August 19 FINDINGS: The lungs appear clear of acute infiltrate. The heart is mildly enlarged IMPRESSION: No acute abnormalities displayed
[2018-08-21] MEDS ORDERED: LIDOCAINE/D5W 2,000 MG/500 ML BAG IV PRN (13:16)
[2018-08-21] MEDS ORDERED: AMIODARONE HCL 450 MG in D5W 241 ML IV SCH ×2 (13:30→23:30)
[2018-08-21 14:08] LABS: Potassium 4.3 mmol/L (3.5-5.1)
[2018-08-21 14:09] LABS: Bilirubin Total 1.1 mg/dL (0.2-1.0); Phosphorus 4.2 mg/dL (2.5-4.9)
[2018-08-21 14:10] LABS: Protein, Total 7.1 g/dL (6.4-8.2)
[2018-08-21 14:50] VITALS: BMI 21.9
[2018-08-21 16:31] VITALS: O2SAT 99
[2018-08-21 17:02] VITALS: BP 112/51
--- NOTE | 2018-08-21 17:30 | P.DS ---
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 (2) Bilateral pleural effusion Onset Date: 08/20/18 Current Visit: Yes Status: Acute (3) Elevated troponin Onset Date: 08/20/18 Current Visit: Yes Status: Acute (4) Tobacco abuse Onset Date: 08/20/18 Current Visit: Yes Status: Chronic (5) Dementia Current Visit: No Status: Chronic Qualifiers: Dementia type: Alzheimer's disease Alzheimer's disease onset: other onset Dementia behavioral disturbance: without behavioral disturbance Qualified Code(s): G30.8 - Other Alzheimer's disease; F02.80 - Dementia in other diseases classified elsewhere without behavioral disturbance (6) Ventricular tachycardia Current Visit: Yes Status: Acute Brief History of Present Illness: Patient is a 77-year-old female who came into the hospital with difficulty breathing. Patient respiratory status has worsened over the last 2-3 days. She has had issues with her breathing but really has not followed up with a research compliance specialist or a sexologist. Her workup in the ER revealed congestive heart failure exacerbation. Patient had bilateral pleural effusions as well. Her CT scan revealed 2 pulmonary nodules. These are concerning for malignancy. Will go ahead and admit the patient to the hospital for new onset congestive heart failure exacerbation. She will get an echocardiogram and cardiology consultation. Will also get a pulmonary consultation. Patient was admitted to the hospital for further workup which will require 48 or more hrs for evaluation. Hospital Course: Overall during the hospital stay patient remained stable The patient was initially admitted to the hospital for CHF exacerbation a steroid being found to have shortness of breath. Patient was admitted to the hospital for cardiology evaluation and IV Lasix. Patient was started on IV Lasix here and had cardiology seen the patient here in the hospital. Cardiology recommended the patient be continued on IV Lasix and patient get an echo and stress test done. An echocardiogram was done which was consistent with EF of 40% along with impaired relaxation along with stress test which was consistent with patient having chest pain and was relieved by nitroglycerin. Patient was doing well overall however on day 3 of hospitalization patient started having intermittent ventricular tachycardia torsades on the monitor. Patient at that time had no chest pain and had no complaints to offer. Cardiology was notified who recommended continuous medical management at this time. Patient then did well overnight and in the morning had another intermittent episode of ventricular tachycardia along with torsades. This time however patient's family at bedside noted that she was having shakes and her eyes rolled back. It was unclear what the patient had seizures did not as patient was not because it does and was alert oriented x3 when examined the patient in the room within 5 seconds. Patient at that time was transferred to the ICU for closer monitoring. All her lab work was within normal limits imaging study was also within normal limits. Patient had EKG done which was consistent with prolonged QT along with hypertrophic left ventricle. In the ICU patient had another episode of ventricular tachycardia at which point she did loose pulse. CPR was initiated. Patient was resuscitated successfully. No medications and no shock was administered. And patient was not intubated and she was saturating well. At that time patient was started on lidocaine drip and transfer to a higher level of care was initiated as cardiology stated the patient would most likely need a cardiac catheterization with Defribillator placement. [facility] was contacted and patient was presented to the ICU doctor there who accepted the patient with cardiology consult and once bed assignment was received patient was life flighted to [facility] for further care. Vital Signs/Physical Exam: Temp Pulse Resp BP Pulse Ox 97.9 F 54 20 112/51 L 98 08/21/18 08:00 08/21/18 17:00 08/21/18 17:00 08/21/18 17:00 08/21/18 17:00 General: Alert, In no apparent distress HEENT: Atraumatic, PERRLA, EOMI Neck: Supple, JVD not distended Respiratory: Clear to auscultation bilaterally, Normal air movement Cardiovascular: Normal S1 S2, Irregular heart rate/rhythm Gastrointestinal: Normal bowel sounds, No tenderness Musculoskeletal: No tenderness Integumentary: No rashes Neurological: Normal speech, Normal tone, Normal affect Lymphatics: No axilla or inguinal lymphadenopathy Laboratory Data at Discharge: WBC 10.1 K/uL (4.3-10.9) 08/21/18 12:50 Hgb 14.4 g/dL (12.0-15.0) 08/21/18 12:50 Hct 42.1 % (36.0-45.0) 08/21/18 12:50 Plt Count 231 K/uL (152-406) 08/21/18 12:50 Sodium 139 mmol/L (136-145) 08/21/18 12:50 Potassium 4.3 mmol/L (3.5-5.1) 08/21/18 12:50 BUN 32 mg/dL (7-18) H 08/21/18 12:50 Creatinine 1.25 mg/dL (0.55-1.3) 08/21/18 12:50 Glucose 117 mg/dL (74-106) H 08/21/18 12:50 Phosphorus 4.2 mg/dL (2.5-4.9) 08/21/18 12:50 Magnesium 3.0 mg/dL (1.8-2.4) H D 08/21/18 12:50 Total Bilirubin 1.1 mg/dL (0.2-1.0) H 08/21/18 12:50 AST 28 U/L (15-37) 08/21/18 12:50 ALT 31 U/L (12-78) 08/21/18 12:50 Alkaline Phosphatase 66 U/L (45-117) 08/21/18 12:50 Troponin I 0.25 ng/mL (0.0-0.045) H 08/21/18 05:52 Home Medications: Esomeprazole Mag Trihydrate [Nexium] 40 mg PO BID 08/19/18
--- NOTE | 2018-08-21 18:05 | EKG ---
Test Date: 2018-08-21 Test Time: 16:05:01 Registration Representative: LYNN MEASUREMENT RESULTS: Intervals: Rate: 52 IN: 124 QRSD: 112 QT: 650 QTc: 604 [place]: P: 65 IN: 124 QRS: -53 T: 241 INTERPRETIVE STATEMENTS: Sinus bradycardia Left anterior fascicular block Left ventricular hypertrophy with repolarization abnormality Prolonged QT Abnormal ECG Compared to ECG 08/21/2018 09:14:09 Left anterior fascicular block now present Sinus rhythm no longer present Myocardial infarct finding no longer present Electronically Signed On 08-21-18 18:04:41 WILDLAND FIREFIGHTER by Reynaldo Parker
--- NOTE | 2018-08-21 18:07 | EKG ---
Test Date: 2018-08-21 Test Time: 09:14:09 [employer] Manager: SARAH MEASUREMENT RESULTS: Intervals: Rate: 62 MA: 134 QRSD: 102 QT: 572 QTc: 580 [place]: P: 36 MA: 134 QRS: -28 T: 223 INTERPRETIVE STATEMENTS: Normal sinus rhythm Left ventricular hypertrophy with repolarization abnormality Septal infarct, age undetermined Prolonged QT Abnormal ECG Compared to ECG 08/20/2018 17:53:00 Early repolarization now present Ventricular premature complex(es) no longer present Left-axis deviation no longer present ST (T wave) deviation no longer present Myocardial infarct finding still present Electronically Signed On 08-21-18 18:04:59 HAT BODY INSPECTOR by Reynaldo Parker
[2018-08-21] MEDS ORDERED: METOPROLOL TAR 50 MG TAB PO SCH ×2 (21:00)
[2018-08-21] MEDS ORDERED: ENOXAPARIN 60 MG/0.6 ML SQ SCH (21:00)
== END 2018-08-21 17:05 | disposition short-term general hospital (02) | DRG 292 ==
LOC: ER 02:42 → ERHOLD 07:27 → 4TH 08:43 → 3RD-ICU 08-21 09:26
PROVIDERS: ADMIT Hospitalist; ATTEND Family Medicine
PROC: 5A12012 Performance of Cardiac Output, Single, Manual (ICD-10-PCS; principal; 2018-08-21)
DX: I50.43 Acute on chronic combined systolic (congestive) and diastolic (congestive) heart failure (principal); J90 Pleural effusion, not elsewhere classified; I47.2 Ventricular tachycardia; R79.89 Other specified abnormal findings of blood chemistry; G30.8 Other Alzheimer's disease; F02.80 Dementia in other diseases classified elsewhere, unspecified severity, without behavioral disturbance, psychotic disturbance, mood disturbance, and anxiety; R91.8 Other nonspecific abnormal finding of lung field; E87.6 Hypokalemia; Z87.891 Personal history of nicotine dependence; Z91.14 Patient's other noncompliance with medication regimen; Z91.11 Patient's noncompliance with dietary regimen
CPT/HCPCS: 36415; 71045; 71275; 78452; 80048; 80053; 82962; 83735; 83880; 84100; 84132; 84145; 84443; 84484; 85025; 85379; 87040; 87804; 93005; 93017; 93306; 94760; 96365; 96375; 99285; A9500; J0282; J1650; J1940; J2001; J2405; J2785; J2930; J3475; J7060; Q9967

== ENCOUNTER 2018-08-28 21:44 | Emergency (ER) | payer OTHER ==
--- OUTSIDE RECORDS SUMMARY | 2018-08-28 21:45 | XMS REPORT | Clinical Summary ---
:1940 Author Organization [facility] Address [address] [place] [address] Care Team Providers Name Role Phone Unavailable Primary Care Provider Unavailable Allergies Not on File Medications Not on file Active Problems Not on file Social History Tobacco Use Types Packs/Day Years Used Date Never Assessed Sex Assigned at Date Recorded Not on file Job Start Date Occupation Industry Not on file Not on file Not on file Travel History Travel Start Travel End No recent travel history available. Last Filed Vital Signs Not on file Plan of Treatment Not on file Results Not on fileafter 08/27/2017
[2018-08-28] MEDS ORDERED: FENTANYL CITR 100 MCG/2 ML ONE (22:43)
[2018-08-28] MEDS ORDERED: ONDANSETRON 4 MG/2 ML VIAL ONE (22:43)
[2018-08-28 22:49] LABS: Absolute Lymphocytes (CBC) 1.5 K/uL (0.7-4.9); Absolute Neutrophil 7.8 K/uL (1.8-8.0); Basophils % 0.6 % (0-1.3); Eosinophils % 0.8 % (0-4.4); Hematocrit 44.6 % (36.0-45.0); Lymphocytes % 14.1 % (15.3-44.8); MPV 10.5 fL (7.6-11.3); Monocytes % 9.6 % (3.3-12.3); RBC Red Blood Cell Count 4.67 M/uL (3.86-4.86)
[2018-08-28 22:54] LABS: Potassium 4.2 mmol/L (3.5-5.1)
--- NOTE | 2018-08-28 23:51 | ER ---
Nurse's Notes [facility] Name: Sita Diana Age: 77 yrs Sex: Female : 1940 Arrival Date: 08/28/2018 Time: 21:50 Bed 5 Private MD: Diagnosis: Other chest pain-Chest wall pain Presentation: 08/28 21:56 Presenting complaint: EMS states: Called for patient having pain to chest when having lp1 hiccups; Per family, patient had CPR performed on her on 08/21, pacemaker implanted on 08/24; X-rays did not show any rib fractures; Continued complaint of pain to mid-chest on movement; Pacemaker site clean and intact; no bruising noted to chest. Transition of care: patient was not received from another setting of care. Onset of symptoms was August 28, 2018. Risk Assessment: Do you want to hurt yourself or someone else? Patient reports no desire to harm self or others. Initial Sepsis Screen: Does the patient meet any 2 criteria? No. Patient's initial sepsis screen is negative. Does the patient have a suspected source of infection? No. Patient's initial sepsis screen is negative. Care prior to arrival: None. 21:56 Method Of Arrival: EMS: [facility] lp1 21:56 Acuity: CROW 3 lp1 Historical: - Allergies: 22:01 No Known Allergies; lp1 - Home Meds: 22:01 metoprolol tartrate 25 mg Oral tab 0.5 tab 2 times per day [Active]; minocycline 100 mg lp1 Oral tab 1 tab 2 times per day [Active]; lisinopril 5 mg Oral tab 0.5 tab once daily [Active]; atorvastatin 40 mg oral tab nightly [Active]; - PMHx: 22:01 Hyperlipidemia; lp1 - PSHx: 22:19 Pacemaker/Defibrillator (08/24/18); lp1 - Immunization history:: Adult Immunizations up to date. - Social history:: Smoking status: Patient/guardian denies using tobacco. - Ebola Screening: : No symptoms or risks identified at this time. Screenin:04 Abuse screen: Denies threats or abuse. Denies injuries from another. Nutritional lp1 screening: No deficits noted. Tuberculosis screening: No symptoms or risk factors identified. Fall Risk Total Martini Fall Scale indicates High Risk Score (45 or more points). Fall prevention measures have been instituted. Side Rails Up X 2 As available patient and family educated on Fall Prevention Program and Strategies. Assessment: 22:02 General: Appears in no apparent distress. Behavior is anxious. Pain: Complains of pain lp1 in xyphoid area and mid-sternal area Pain currently is 7 out of 10 on a pain scale. Quality of pain is described as tender on palpation Aggravated by repositioning, Noted to be grimacing, moaning, resistant to movement. Neuro: Level of Consciousness is awake, alert, obeys commands, Oriented to person, place, situation. Cardiovascular: Patient's skin is warm and dry. Respiratory: Respiratory effort is even, unlabored, Respiratory pattern is regular, Breath sounds are clear bilaterally. GI: No signs and/or symptoms were reported involving the gastrointestinal system. : No signs and/or symptoms were reported regarding the genitourinary system. EENT: No signs and/or symptoms were reported regarding the EENT system. Derm: Pacemaker surgical site to left upper chest, clean, dry, intact. Musculoskeletal: Circulation, motion, and sensation intact. 23:00 Reassessment: Patient returned from CT, pain has decreased at this time; Patient states lp1 readiness to go home. 08/29 00:16 Reassessment: Patient appears in no apparent distress at this time. Patient is alert, lp1 oriented x 3, equal unlabored respirations, skin warm/dry/pink. Patient states feeling better. Vital Signs: 08/28 22:01 BP 156 / 87; Pulse 82; Resp 16; Temp 97.8(O); Pulse Ox 100% on R/A; Weight 57.61 kg; lp1 Height 5 ft. 2 in. (157.48 cm); Pain 7/10; 23:06 BP 113 / 60; Pulse 80; Resp 16; Pulse Ox 96% on R/A; lp1 23:39 BP 121 / 71; Pulse 80; Resp 17; Pulse Ox 96% on R/A; lp1 08/29 00:15 BP 126 / 68; Pulse 84; Resp 17; Pulse Ox 97% on R/A; lp1 08/28 22:01 Body Mass Index 23.23 (57.61 kg, 157.48 cm) lp1 ED Course: 08/28 21:50 Patient arrived in ED. tl2 21:55 Pamella Darby, RN is Primary Nurse. lp1 21:58 Triage completed. lp1 22:01 Arm band placed on right wrist. lp1 22:03 Toy Huang PA is PHCP. jr8 22:03 Dominick Young MD is Attending Physician. jr8 22:04 Patient has correct armband on for positive identification. Placed in gown. Bed in low lp1 position. Call light in reach. Side rails up X2. sensor specialist on. Pulse ox on. NIBP on. 22:25 Inserted saline lock: 20 gauge in right antecubital area, using aseptic technique. lp1 Blood collected. 22:27 Radiology exam delayed due to IV insertion attempt and/or patient not having nj appropriate IV at this time. 22:43 Patient moved to [place] via stretcher. lp1 22:49 CT Chest Wo Con In Process Unspecified. EDMS 23:02 CT completed. Patient tolerated procedure well. Patient moved back from MO. id 08/29 00:16 No provider procedures requiring assistance completed. IV discontinued, No lp1 redness/swelling at site. Pressure dressing applied. Administered Medications: 08/28 22:43 Drug: fentaNYL (PF) 25 mcg Route: IVP; Site: right antecubital; lp1 23:01 Follow up: Response: Pain is decreased lp1 22:43 Drug: Zofran 4 mg Route: IVP; Site: right antecubital; lp1 23:01 Follow up: Response: No adverse reaction lp1 Outcome: 23:50 Discharge ordered by . jr8 08/29 00:16 Discharged to home via wheelchair, with family. lp1 Condition: good Discharge instructions given to patient, family, Instructed on discharge instructions, follow up and referral plans. medication usage, Demonstrated understanding of instructions, follow-up care, medications, Prescriptions given X 2. 00:16 Patient left the ED. lp1 Signatures: Dispatcher [employer] EDLA Pamella Darby RN RN lp1 Toy Huang PA PA jr8 Nabila Jc RN RN tl2 Ponce Patel Corrections: (The following items were deleted from the chart) 08/28 22:19 22:01 PSHx: Pacemaker (08/24/18); lp1 lp1 22:27 22:[address] nj nj
--- NOTE | 2018-08-28 23:51 | EDPHYS ---
Physician Documentation [facility] Name: Sita Diana Age: 77 yrs Sex: Female : 1940 Arrival Date: 08/28/2018 Time: 21:50 Bed 5 Private MD: ED Physician Dominick Young HPI: 08/28 23:45 This 77 yrs old Female presents to ER via EMS with complaints of chest pain. jr8 23:45 The patient or guardian reports chest pain that is located primarily in the anterior jr8 chest wall. Onset: The symptoms/episode began/occurred acutely, 5 day(s) ago. The pain does not radiate. Associated signs and symptoms: The patient has no apparent associated signs or symptoms. The chest pain is described as sharp. Duration: The patient or guardian reports multiple episodes, that are intermittent, that wax and wane. Modifying factors: The symptoms are alleviated by nothing. the symptoms are aggravated by cough, deep breath. Severity of pain: At its worst the pain was moderate in the emergency department the pain has improved. The patient has not experienced similar symptoms in the past. The patient has been recently seen by a physician:. Patient on the had gone into cardiac arrest. Was transferred for pace maker. Since then has been doing well but having chest pain to sternal region and to bilateral anterior chest with hiccups, cough, and deep breath. CPR was performed the day patient arrested . Historical: - Allergies: 22:01 No Known Allergies; lp1 - Home Meds: 22:01 metoprolol tartrate 25 mg Oral tab 0.5 tab 2 times per day [Active]; minocycline 100 mg lp1 Oral tab 1 tab 2 times per day [Active]; lisinopril 5 mg Oral tab 0.5 tab once daily [Active]; atorvastatin 40 mg oral tab nightly [Active]; - PMHx: 22:01 Hyperlipidemia; lp1 - PSHx: 22:19 Pacemaker/Defibrillator (08/24/18); lp1 - Immunization history:: Adult Immunizations up to date. - Social history:: Smoking status: Patient/guardian denies using tobacco. - Ebola Screening: : No symptoms or risks identified at this time. ROS: 23:45 Eyes: Negative for injury, pain, redness, and discharge, ENT: Negative for injury, jr8 pain, and discharge, Neck: Negative for injury, pain, and swelling, Respiratory: Negative for shortness of breath, cough, wheezing, and pleuritic chest pain, Abdomen/GI: Negative for abdominal pain, nausea, vomiting, diarrhea, and constipation, Back: Negative for injury and pain, MS/Extremity: Negative for injury and deformity, Skin: Negative for injury, rash, and discoloration, Neuro: Negative for headache, weakness, numbness, tingling, and seizure. 23:45 Cardiovascular: Positive for chest pain, Negative for edema, orthopnea, palpitations, paroxysmal nocturnal dyspnea. Exam: 23:45 Eyes: Pupils equal round and reactive to light, extra-ocular motions intact. Lids and jr8 lashes normal. Conjunctiva and sclera are non-icteric and not injected. Cornea within normal limits. Periorbital areas with no swelling, redness, or edema. ENT: Nares patent. No nasal discharge, no septal abnormalities noted. Tympanic membranes are normal and external auditory canals are clear. Oropharynx with no redness, swelling, or masses, exudates, or evidence of obstruction, uvula midline. Mucous membranes moist. Neck: Trachea midline, no thyromegaly or masses palpated, and no cervical lymphadenopathy. Supple, full range of motion without nuchal rigidity, or vertebral point tenderness. No Meningismus. Cardiovascular: Regular rate and rhythm with a normal S1 and S2. No gallops, murmurs, or rubs. Normal PMI, no JVD. No pulse deficits. Respiratory: Lungs have equal breath sounds bilaterally, clear to auscultation and percussion. No rales, rhonchi or wheezes noted. No increased work of breathing, no retractions or nasal flaring. Abdomen/GI: Soft, non-tender, with normal bowel sounds. No distension or tympany. No guarding or rebound. No evidence of tenderness throughout. Back: No spinal tenderness. No costovertebral tenderness. Full range of motion. Skin: Warm, dry with normal turgor. Normal color with no rashes, no lesions, and no evidence of cellulitis. MS/ Extremity: Pulses equal, no cyanosis. Neurovascular intact. Full, normal range of motion. Neuro: Awake and alert, GCS 15, oriented to person, place, time, and situation. Cranial nerves II-XII grossly intact. Motor strength 5/5 in all extremities. Sensory grossly intact. Cerebellar exam normal. Normal gait. 23:45 Chest/axilla: Inspection: normal, Palpation: tenderness, that is moderate, of the anterior aspect of right upper chest, anterior aspect of left upper chest and mid-sternal area, incision site noted to left upper chest where new pacemaker is. No erythema, edema, or acute finding noted to surgical site . Vital Signs: 22:01 BP 156 / 87; Pulse 82; Resp 16; Temp 97.8(O); Pulse Ox 100% on R/A; Weight 57.61 kg; lp1 Height 5 ft. 2 in. (157.48 cm); Pain 7/10; 23:06 BP 113 / 60; Pulse 80; Resp 16; Pulse Ox 96% on R/A; lp1 23:39 BP 121 / 71; Pulse 80; Resp 17; Pulse Ox 96% on R/A; lp1 08/29 00:15 BP 126 / 68; Pulse 84; Resp 17; Pulse Ox 97% on R/A; lp1 08/28 22:01 Body Mass Index 23.23 (57.61 kg, 157.48 cm) lp1 MDM: 08/28 22:03 Patient medically screened. [facility] 23:45 Data reviewed: vital signs, nurses notes, lab test result(s), EKG, radiologic studies, [facility] CT scan. Data interpreted: Pulse oximetry: on room air is 96 %. Interpretation: normal. Counseling: I had a detailed discussion with the patient and/or guardian regarding: the historical points, exam findings, and any diagnostic results supporting the discharge/admit diagnosis, lab results, radiology results, the need for outpatient follow up, a partition assembler, a family practitioner, to return to the emergency department if symptoms worsen or persist or if there are any questions or concerns that arise at home. Response to treatment: the patient's symptoms have markedly improved after treatment. 08/29 00:07 ED course: Family aware of pulmonary mass. I gave finish molder to f/u with . [facility] 08/28 22:15 Order name: CBC with Diff; Complete Time: 23:40 8 08/28 22:15 Order name: Basic Metabolic Panel; Complete Time: 22:57 [facility] 08/28 22:15 Order name: IV; Complete Time: :29 [facility] 08/28 22:15 Order name: CT Chest Wo Con jr8 08/28 22:15 Order name: EKG - Nurse/Tech; Complete Time: : jr8 Administered Medications: 08/28 22:43 Drug: fentaNYL (PF) 25 mcg Route: IVP; Site: right antecubital; lp1 23:01 Follow up: Response: Pain is decreased lp1 22:43 Drug: Zofran 4 mg Route: IVP; Site: right antecubital; lp1 23:01 Follow up: Response: No adverse reaction lp1 Disposition: 08/29 06:43 Co-signature as Attending Physician, Dominick Young MD I agree with the assessment and kdr plan of care. Disposition: 08/28/18 23:50 Discharged to Home. Impression: Other chest pain - Chest wall pain. - Condition is Stable. - Discharge Instructions: Chest Wall Pain. - Prescriptions for Ibuprofen 600 mg Oral Tablet - take 1 tablet by ORAL route every 8 hours As needed take with food; 30 tablet. Zofran 4 mg Oral Tablet - take 1 tablet by ORAL route every 12 hours As needed; 20 tablet. - Medication Reconciliation Form, Thank You Letter, Antibiotic Education, Prescription Opioid Use form. - Follow up: Private Physician; When: 2 - 3 days; Reason: Recheck today's complaints, Continuance of care, Re-evaluation by your physician. - Problem is new. - Symptoms have improved. Signatures: Dispatcher [employer] EDMS Dominick Young MD MD kdr Pena, Laura, RN RN lp1 Toy Huang PA PA jr8 Corrections: (The following items were deleted from the chart) 08/28 22:19 22:01 PSHx: Pacemaker (08/24/18); lp1 lp1 23:49 23:45 Chest/axilla: Inspection: normal, Palpation: tenderness, that is moderate, of the jr8 anterior aspect of right upper chest, anterior aspect of left upper chest and mid-sternal area, jr8 08/29 00:16 08/28 23:50 08/28/2018 23:50 Discharged to Home. Impression: Other chest pain - Chest lp1 wall pain. Condition is Stable. Forms are Medication Reconciliation Form, Thank You Letter, Antibiotic Education, Prescription Opioid Use. Follow up: Private Physician; When: 2 - 3 days; Reason: Recheck today's complaints, Continuance of care, Re-evaluation by your physician. Problem is new. Symptoms have improved. jr8
[2018-08-29 01:07] VITALS: TEMP 97.8
[2018-08-29 01:11] VITALS: BP 126/68; O2SAT 97
--- NOTE | 2018-08-29 09:11 | RAD REPORT ---
EXAM DESCRIPTION: CT - Thorax Wo Con - 08/29/2018 6:10 am CLINICAL HISTORY: Chest pain, history of CPR performed August 21, pacemaker placement August 24 A preliminary report was provided at the time of the study and reviewed prior to final report. COMPARISON: Portable chest August 21, CT chest August 19 TECHNIQUE: Axial 5 mm thick images of the chest were obtained without IV contrast. All CT scans are performed using dose optimization technique as appropriate and may include automated exposure control or mA/KV adjustment according to patient size. FINDINGS: Approximately 2.6 centimeter irregular mass is present in the superior right upper lobe. T his is unchanged from the short interval August 19 study. An approximately 15 millimeter area of op acification in the lateral left upper lobe has diminished slightly from August 19. No new lung pare nchymal mass or infiltrate. No pleural based mass or new pleural thickening. Pleural effusions have r esolved since the comparison. No pneumothorax. No abnormal mediastinal or hilar masses or lymphadenopathy seen. No gross aortic or pulmonary artery finding suspected. No pericardial thickening or effusion. Pacemaker has been placed since prior . No rib fracture seen. On the lateral view there is a slight concavity or buckling along the anterior cortical margin mid sternum not seen August 19. This may be incomplete or partial fracture related to the CPR event of August 21. The deep or posterior cortical wall is intact. IMPRESSION: Approximately 2.6 cm ill-defined mass superior right upper lobe unchanged in size since August 19. Malignant mass cannot be excluded and continued close follow-up is needed. Remnant infi ltrate is possible. Ill-defined 15 mm area of opacification in the left upper lobe has fractionally decreased since Decem . This will need monitoring as well. Partial or incomplete fracture of the mid sternum. There is inward buckling of the anterior cortical wall of the mid sternum new from August 19. Deep or posterior wall of the sternum is intact. Resolution of bilateral pleural effusions since August 19.
--- NOTE | 2018-08-30 10:20 | EKG ---
Test Date: 2018-08-28 Test Time: 22:14:35 Resident Care Coordinator: BUTCH MEASUREMENT RESULTS: Intervals: Rate: 84 HI: 122 QRSD: 102 QT: 402 QTc: 475 Dewar: P: 56 HI: 122 QRS: -61 T: 121 INTERPRETIVE STATEMENTS: Atrial paced rhythm and sinus rhythm Left anterior fascicular block Voltage criteria for left ventricular hypertrophy T wave abnormality, consider lateral ischemia Prolonged QT Abnormal ECG Compared to ECG 08/21/2018 16:05:01 Anterior T inversion with QT prolongation has resolved Sinus bradycardia no longer present Atrial demand pacing is now present Electronically Signed On 08-30-18 10:19:47 NEWSP[employer]ER EDITOR MANAGING by Matt Temple
== END 2018-08-29 00:16 | disposition home or self-care (01) ==
LOC: ER 21:44
DX: R07.89 Other chest pain (principal); Z95.0 Presence of cardiac pacemaker; R91.8 Other nonspecific abnormal finding of lung field; S22.20XA Unspecified fracture of sternum, initial encounter for closed fracture; X58.XXXA Exposure to other specified factors, initial encounter; I44.4 Left anterior fascicular block; I45.81 Long QT syndrome; E78.5 Hyperlipidemia, unspecified; Z79.899 Other long term (current) drug therapy
CPT/HCPCS: 36415; 71250; 80048; 85025; 93005; 96374; 96375; 99285; J2405; J3010

== ENCOUNTER 2018-09-05 17:30 | Inpatient (IN) | payer OTHER ==
--- OUTSIDE RECORDS SUMMARY | 2018-09-05 17:32 | XMS REPORT | Clinical Summary ---
:1940 Author Organization [facility] Address [address] [place] [address] Care Team Providers Name Role Phone Unavailable [...] Not on file Results Not on fileafter 09/04/2017
[2018-09-05] MEDS ORDERED: NA CHLORIDE 0.9% 1,000 ML ONE (18:50)
[2018-09-05] MEDS ORDERED: ONDANSETRON 4 MG/2 ML VIAL ONE ×2 (18:50→19:40)
[2018-09-05] MEDS ORDERED: FAMOTIDINE 20 MG/2 ML VIAL IV ONE (18:50)
[2018-09-05 19:11] LABS: Absolute Lymphocytes (CBC) 2.1 K/uL (0.7-4.9); Absolute Monocytes 1.3 K/uL (0.1-1.3); Absolute Neutrophil 15.6 K/uL (1.8-8.0); Basophils % 0.2 % (0-1.3); Hematocrit 52.1 % (36.0-45.0); Lymphocytes % 11.1 % (15.3-44.8); MPV 12.1 fL (7.6-11.3); RBC Red Blood Cell Count 5.53 M/uL (3.86-4.86)
[2018-09-05 19:19] LABS: Protime INR 1.05
--- NOTE | 2018-09-05 19:25 | ER ---
Nurse's Notes [facility] Name: Sita Diana Age: 77 yrs Sex: Female : 1940 Arrival Date: 09/05/2018 Time: 17:50 Bed 24 Private MD: Diagnosis: Weakness;Vomiting;Dehydration;Chest pain, unspecified;Elevated white blood cell count Presentation: 09/05 17:56 Presenting complaint: EMS states: pt had recent pace maker placed on Elizabeth Zuri, pt tl3 has been feeling weak and had no appetite and having constant chest pain, did get CPR prior to pace maker placement. Transition of care: patient was not received from another setting of care. Onset of symptoms was September 05, 2018. Risk Assessment: Do you want to hurt yourself or someone else? Patient reports no desire to harm self or others. Initial Sepsis Screen: Does the patient meet any 2 criteria? No. Patient's initial sepsis screen is negative. Does the patient have a suspected source of infection? No. Patient's initial sepsis screen is negative. Care prior to arrival: None. 17:56 Method Of Arrival: EMS: [facility] tl3 17:56 Acuity: CROW 3 tl3 Triage Assessment: 18:01 General: Appears uncomfortable, slender, well groomed, well developed, Behavior is tl3 calm, cooperative, appropriate for age. Pain: Complains of pain in chest. EENT: No signs and/or symptoms were reported regarding the EENT system. Neuro: Level of Consciousness is awake, alert, obeys commands, Oriented to person, place, time, situation, Appropriate for age. Cardiovascular: Patient's skin is warm and dry. Rhythm is Respiratory: Airway is patent Respiratory effort is even, unlabored, Respiratory pattern is regular, symmetrical. GI: Reports anorexia, intolerance of fluids, intolerance of food. : No signs and/or symptoms were reported regarding the genitourinary system. Derm: No signs and/or symptoms reported regarding the dermatologic system. Musculoskeletal: No signs and/or symptoms reported regarding the musculoskeletal system. Historical: - Allergies: 18:01 No Known Allergies; tl3 - Home Meds: 18:01 atorvastatin 40 mg Oral tab nightly [Active]; lisinopril 5 mg Oral tab 0.5 tab once tl3 daily [Active]; metoprolol tartrate 25 mg Oral tab 0.5 tab 2 times per day [Active]; minocycline 100 mg Oral tab 1 tab 2 times per day [Active]; - PMHx: 18:01 Hyperlipidemia; tl3 - PSHx: 18:01 Pacemaker/Defibrillator (08/24/18); tl3 - Immunization history:: Adult Immunizations up to date. - Social history:: Smoking status: Patient/guardian denies using tobacco, never smoked. - Ebola Screening: : No symptoms or risks identified at this time. - Family history:: not pertinent. Screenin:05 Abuse screen: Denies threats or abuse. Nutritional screening: unable to tolerate food, tl3 no appetite. Tuberculosis screening: No symptoms or risk factors identified. Fall Risk Secondary diagnosis (15 points) impaired mobility. Assessment: 18:05 Reassessment: No changes from previously documented assessment. tl3 19:20 Reassessment: Patient appears in no apparent distress at this time. No changes from tl3 previously documented assessment. Patient and/or family updated on plan of care and expected duration. Pain level reassessed. Patient is alert, oriented x 3, equal unlabored respirations, skin warm/dry/pink. family at bedside. 21:52 Reassessment: Patient appears in no apparent distress at this time. No changes from tl3 previously documented assessment. Patient and/or family updated on plan of care and expected duration. Pain level reassessed. Patient is alert, oriented x 3, equal unlabored respirations, skin warm/dry/pink. report called to Kellee URENA. 21:57 Reassessment: pt reports that she just dribbles urine daily that she does not use the tl3 bathroom on a regular basis. A protrusion from the right side of the inner labial/vaginal vault that blocked the meatus was noted. Vital Signs: 18:05 BP 137 / 76; Pulse 80; Resp 18; Pulse Ox 98% on R/A; tl3 19:20 BP 103 / 61; Pulse 78; Resp 18; Pulse Ox 99% on R/A; tl3 21:52 BP 106 / 70; Pulse 79; Resp 18; Pulse Ox 100% on R/A; tl3 ED Course: 17:50 Patient arrived in ED. iw 17:56 Farida Blackwell, AYANNA is Primary Nurse. tl3 17:58 Triage completed. tl3 18:02 Tapan Cooley MD is Attending Physician. cadence 18:05 Patient has correct armband on for positive identification. Placed in gown. Bed in low tl3 position. Call light in reach. Pulse ox on. NIBP on. 18:05 No provider procedures requiring assistance completed. EKG done, by ED staff, reviewed tl3 by Tapan Cooley MD. 18:44 XRAY Chest (1 view) In Process Unspecified. EDMS 19:05 Initial lab(s) drawn, by me, sent to lab. Inserted saline lock: 22 gauge in left tl3 antecubital area, using aseptic technique. Blood collected. 19:23 Kyler Aponte MD is Hospitalizing Provider. [facility] 21:52 pt cleaned and brief changed, diarrhea thin and dark, skin breakdown in perianal area, tl3 coated with A\T\D ointment for barrier protection. 21:52 Straight cath inserted, using sterile technique, 8 fr cath used to obtain urine. tl3 Patient admitted, IV remains in place. 21:56 Arm band placed on. tl3 Administered Medications: 19:02 Drug: NS 0.9% 500 ml Route: IV; Rate: bolus; Site: left antecubital; Delivery: Primary tl3 tubing; 19:45 Follow up: IV Status: Completed infusion; IV Intake: 500ml tl3 19:02 Drug: Zofran 4 mg Route: IVP; Infused Over: 2 mins; Site: left antecubital; tl3 19:45 Follow up: Response: No adverse reaction tl3 19:02 Drug: Pepcid 20 mg Route: IVP; Infused Over: 2 mins; Site: left antecubital; tl3 19:45 Follow up: Response: No adverse reaction tl3 19:30 Drug: Rocephin - (cefTRIAXone) 1 grams Route: IVPB; Infused Over: 30 mins; Site: left tl3 antecubital; Delivery: Primary tubing; 19:43 Follow up: IV Status: Completed infusion; IV Intake: 30ml tl3 19:30 Drug: Zofran 4 mg Route: IVP; Infused Over: 2 mins; Site: left antecubital; tl3 21:45 Follow up: Response: No adverse reaction tl3 19:46 Drug: NS 0.9% 1000 ml Route: IV; Rate: 125 ml/hr; Site: left antecubital; Delivery: tl3 Primary tubing; 22:12 Follow up: IV Status: Infusion continued upon transfer tl3 Intake: 19:43 IV: 30ml; Total: 30ml. tl3 19:45 IV: 500ml; Total: 530ml. tl3 Outcome: 19:24 Decision to Hospitalize by Provider. cadence 21:56 Admitted to Med/surg accompanied by tech, via stretcher, with chart, Report called to tl3 Desiree URENA 21:56 Condition: stable 21:56 Instructed on the need for admit, Demonstrated understanding of instructions. 22:50 Patient left the ED. tl3 Signatures: Dispatcher [employer] EDTapan Levy MD MD cha Williams, Irene, Farida Underwood RN, RN RN tl3 Corrections: (The following items were deleted from the chart) 18:05 18:01 GI: No signs and/or symptoms were reported involving the gastrointestinal system. tl3 tl3 21:53 21:52 Reassessment: Patient appears in no apparent distress at this time. No changes tl3 from previously documented assessment. Patient and/or family updated on plan of care and expected duration. Pain level reassessed. Patient is alert, oriented x 3, equal unlabored respirations, skin warm/dry/pink. tl3
--- NOTE | 2018-09-05 19:26 | EDPHYS ---
Physician Documentation [facility] Name: Sita Diana Age: 77 yrs Sex: Female : 1940 Arrival Date: 09/05/2018 Time: 17:50 Bed 24 Private MD: ED Physician Tapan Cooley HPI: 09/05 18:10 This 77 yrs old Female presents to ER via EMS with complaints of chest pain, cadence abdomen pain and continous nausea and vomiting. 18:10 The patient or guardian reports chest pain that is located primarily in the anterior cadence chest wall. Onset: 14 day(s) ago. The patient presents with abdominal pain. Onset: The symptoms/episode began/occurred 2 week(s) ago. The patient presents to the emergency department with nausea, vomiting, abdominal pain, of the right upper quadrant, left upper quadrant, right lower quadrant and left lower quadrant. Onset: The symptoms/episode began/occurred 2 week(s) ago. Possible causes: unknown. The symptoms are aggravated by nothing. The symptoms are alleviated by nothing. Historical: - Allergies: 18:01 No Known Allergies; tl3 - Home Meds: 18:01 atorvastatin 40 mg Oral tab nightly [Active]; lisinopril 5 mg Oral tab 0.5 tab once tl3 daily [Active]; metoprolol tartrate 25 mg Oral tab 0.5 tab 2 times per day [Active]; minocycline 100 mg Oral tab 1 tab 2 times per day [Active]; - PMHx: 18:01 Hyperlipidemia; tl3 - PSHx: 18:01 Pacemaker/Defibrillator (08/24/18); tl3 - Immunization history:: Adult Immunizations up to date. - Social history:: Smoking status: Patient/guardian denies using tobacco, never smoked. - Ebola Screening: : No symptoms or risks identified at this time. - Family history:: not pertinent. ROS: 18:10 Constitutional: Negative for fever, chills, and weight loss, Eyes: Negative for injury, cadence pain, redness, and discharge, ENT: Negative for injury, pain, and discharge, Neck: Negative for injury, pain, and swelling, Cardiovascular: Negative for chest pain, palpitations, and edema, Respiratory: Negative for shortness of breath, cough, wheezing, and pleuritic chest pain, Back: Negative for injury and pain, : Negative for injury, bleeding, discharge, and swelling, MS/Extremity: Negative for injury and deformity, Skin: Negative for injury, rash, and discoloration, Neuro: Negative for headache, weakness, numbness, tingling, and seizure, Psych: Negative for depression, anxiety, suicide ideation, homicidal ideation, and hallucinations, Allergy/Immunology: Negative for hives, rash, and allergies, Endocrine: Negative for neck swelling, polydipsia, polyuria, polyphagia, and marked weight changes, Hematologic/Lymphatic: Negative for swollen nodes, abnormal bleeding, and unusual bruising. 18:10 Abdomen/GI: Positive for abdominal pain, nausea and vomiting. Exam: 18:10 Constitutional: This is a well developed, well nourished patient who is awake, alert, cadence and in no acute distress. Head/Face: Normocephalic, atraumatic. Eyes: Pupils equal round and reactive to light, extra-ocular motions intact. Lids and lashes normal. Conjunctiva and sclera are non-icteric and not injected. Cornea within normal limits. Periorbital areas with no swelling, redness, or edema. ENT: Nares patent. No nasal discharge, no septal abnormalities noted. Tympanic membranes are normal and external auditory canals are clear. Oropharynx with no redness, swelling, or masses, exudates, or evidence of obstruction, uvula midline. Mucous membranes moist. Neck: Trachea midline, no thyromegaly or masses palpated, and no cervical lymphadenopathy. Supple, full range of motion without nuchal rigidity, or vertebral point tenderness. No Meningismus. Chest/axilla: Normal chest wall appearance and motion. Nontender with no deformity. No lesions are appreciated. Cardiovascular: Regular rate and rhythm with a normal S1 and S2. No gallops, murmurs, or rubs. Normal PMI, no JVD. No pulse deficits. Respiratory: Lungs have equal breath sounds bilaterally, clear to auscultation and percussion. No rales, rhonchi or wheezes noted. No increased work of breathing, no retractions or nasal flaring. Back: No spinal tenderness. No costovertebral tenderness. Full range of motion. Female : Normal external genitalia. Skin: Warm, dry with normal turgor. Normal color with no rashes, no lesions, and no evidence of cellulitis. MS/ Extremity: Pulses equal, no cyanosis. Neurovascular intact. Full, normal range of motion. Neuro: Awake and alert, GCS 15, oriented to person, place, time, and situation. Cranial nerves II-XII grossly intact. Motor strength 5/5 in all extremities. Sensory grossly intact. Cerebellar exam normal. Normal gait. Psych: Awake, alert, with orientation to person, place and time. Behavior, mood, and affect are within normal limits. 18:10 Abdomen/GI: Inspection: abdomen appears normal, Bowel sounds: normal, Palpation: mild abdominal tenderness, in all quadrants, Liver: no appreciated palpable abnormalities, Hernia: not appreciated. Vital Signs: 18:05 BP 137 / 76; Pulse 80; Resp 18; Pulse Ox 98% on R/A; tl3 19:20 BP 103 / 61; Pulse 78; Resp 18; Pulse Ox 99% on R/A; tl3 21:52 BP 106 / 70; Pulse 79; Resp 18; Pulse Ox 100% on R/A; tl3 MDM: 18:02 Patient medically screened. [facility] 18:14 Data reviewed: vital signs, nurses notes, lab test result(s), EKG, radiologic studies, [facility] CT scan, plain films. 09/05 18:09 Order name: Basic Metabolic Panel [facility] 09/05 18:09 Order name: CBC with Diff; Complete Time: 20:52 [facility] 09/05 18:09 Order name: LFT's; Complete Time: 20:52 [facility] 09/05 18:09 Order name: Magnesium; Complete Time: 20:52 [facility] 09/05 18:09 Order name: NT PRO-BNP; Complete Time: 20:52 [facility] 09/05 18:09 Order name: PT-INR; Complete Time: 19:25 [facility] 09/05 18:09 Order name: Troponin (emerg Dept Use Only); Complete Time: 20:52 [facility] 09/05 18:09 Order name: Lipase; Complete Time: 20:52 [facility] 09/05 18:10 Order name: Basic Metabolic Panel; Complete Time: 20:52 [facility] 09/05 19:25 Order name: CBC Smear Scan; Complete Time: 20:52 [facility] 09/05 19:26 Order name: Blood Culture Adult (2) [facility] 09/05 19:26 Order name: Procalcitonin [facility] 09/05 19:26 Order name: Lactate [facility] 09/05 18:09 Order name: XRAY Chest (1 view) [facility] 09/05 18:09 Order name: CT Abd/Pelvis - W/Contrast [facility] 09/05 19:26 Order name: Urine Culture [facility] 09/05 20:32 Order name: Urinalysis [facility] 09/05 20:32 Order name: CBC with Automated Diff [facility] 09/05 20:32 Order name: CBC with Automated Diff [facility] 09/05 20:32 Order name: Comprehensive Metabolic Panel [facility] 09/05 20:32 Order name: Comprehensive Metabolic Panel [facility] 09/05 20:32 Order name: Magnesium [facility] 09/05 20:32 Order name: Magnesium [facility] 09/05 20:32 Order name: Phosphorus [facility] 09/05 20:32 Order name: Phosphorus [facility] 09/05 21:24 Order name: CT [facility] 09/05 18:09 Order name: EKG; Complete Time: 18:10 [facility] 09/05 18:09 Order name: Cardiac monitoring; Complete Time: 19:04 [facility] 09/05 18:09 Order name: EKG - Nurse/Tech; Complete Time: 19:04 [facility] 09/05 18:09 Order name: IV Saline Lock; Complete Time: 19:04 [facility] 09/05 18:09 Order name: Labs collected and sent; Complete Time: 19:04 [facility] 09/05 18:09 Order name: O2 Per Protocol; Complete Time: 19:04 [facility] 09/05 18:09 Order name: O2 Sat Monitoring; Complete Time: 19:04 [facility] 09/05 20:31 Order name: CONS Physician Consult [facility] 09/05 20:31 Order name: CONS Physician Consult [facility] 09/05 20:31 Order name: Heart Healthy [facility] Administered Medications: 19:02 Drug: NS 0.9% 500 ml Route: IV; Rate: bolus; Site: left antecubital; Delivery: Primary tl3 tubing; 19:45 Follow up: IV Status: Completed infusion; IV Intake: 500ml tl3 19:02 Drug: Zofran 4 mg Route: IVP; Infused Over: 2 mins; Site: left antecubital; tl3 19:45 Follow up: Response: No adverse reaction tl3 19:02 Drug: Pepcid 20 mg Route: IVP; Infused Over: 2 mins; Site: left antecubital; tl3 19:45 Follow up: Response: No adverse reaction tl3 19:30 Drug: Rocephin - (cefTRIAXone) 1 grams Route: IVPB; Infused Over: 30 mins; Site: left tl3 antecubital; Delivery: Primary tubing; 19:43 Follow up: IV Status: Completed infusion; IV Intake: 30ml tl3 19:30 Drug: Zofran 4 mg Route: IVP; Infused Over: 2 mins; Site: left antecubital; tl3 21:45 Follow up: Response: No adverse reaction tl3 19:46 Drug: NS 0.9% 1000 ml Route: IV; Rate: 125 ml/hr; Site: left antecubital; Delivery: tl3 Primary tubing; 22:12 Follow up: IV Status: Infusion continued upon transfer tl3 Disposition: 09/05/18 19:24 Hospitalization ordered by Kyler Aponte for Inpatient Admission. Preliminary diagnosis are Weakness, Vomiting, Dehydration, Chest pain, unspecified, Elevated white blood cell count. - Bed requested for Telemetry/MedSurg (Inpatient). - Status is Inpatient Admission. tl3 - Condition is Fair. - Problem is new. - Symptoms have improved. UTI on Admission? No Signatures: Dispatcher [employer] [facility] Tapan Cooley MD MD cha Page, Corey, PA PA cp Garcia, Cindy, RN RN Farida Blackwell RN RN tl3 Corrections: (The following items were deleted from the chart) 19:27 19:24 Hospitalization Ordered by Kyler Aponte MD for Inpatient Admission. Preliminary cadence diagnosis is Weakness; Vomiting; Dehydration; Chest pain, unspecified. Bed requested for Telemetry/MedSurg (Inpatient). Status is Inpatient Admission. Condition is Fair. Problem is new. Symptoms have improved. UTI on Admission? No. cadence 19:29 19:26 Urine Culture+BA.LAB.BRZ ordered. [facility] 20:53 19:27 09/05/2018 19:24 Hospitalization Ordered by Kyler Aponte MD for Inpatient cg Admission. Preliminary diagnosis is Weakness; Vomiting; Dehydration; Chest pain, unspecified; Elevated white blood cell count. Bed requested for Telemetry/MedSurg (Inpatient). Status is Inpatient Admission. Condition is Fair. Problem is new. Symptoms have improved. UTI on Admission? No. cadence 22:50 20:53 09/05/2018 19:24 Hospitalization Ordered by Kyler Aponte MD for Inpatient tl3 Admission. Preliminary diagnosis is Weakness; Vomiting; Dehydration; Chest pain, unspecified; Elevated white blood cell count. Bed requested for Telemetry/MedSurg (Inpatient). Status is Inpatient Admission. Condition is Fair. Problem is new. Symptoms have improved. UTI on Admission? No. cg
[2018-09-05 19:28] LABS: Albumin 3.1 g/dL (3.4-5.0); Bilirubin Direct 0.3 mg/dL (0-0.2); Bilirubin Total 0.9 mg/dL (0.2-1.0); Magnesium 2.4 mg/dL (1.8-2.4); Potassium 4.5 mmol/L (3.5-5.1); Protein, Total 6.1 g/dL (6.4-8.2); Troponin (Emerg Dept Use Only) 0.03 ng/mL (0.0-0.045)
[2018-09-05] MEDS ORDERED: CEFTRIAXONE/SWI 1gm 1 GM/10 ML SYR ONE (19:40)
[2018-09-05 19:54] LABS: Blood Morphology Comment NOT SEEN (NOT SEEN); Platelet Estimate DECR; Urine White Blood Cell Casts OK
[2018-09-05] MEDS ORDERED: ALPRAZOLAM 0.25 MG TABLET PO PRN (20:23)
[2018-09-05] MEDS ORDERED: ONDANSETRON 4 MG/2 ML VIAL IV PRN (20:23)
[2018-09-05] MEDS ORDERED: ACETAMINOPHEN 500 MG TAB PO PRN (20:23)
[2018-09-05] MEDS ORDERED: NA CHLORIDE 0.9% 1,000 ML IV SCH (21:00)
--- NOTE | 2018-09-05 21:23 | RAD REPORT ---
EXAM DESCRIPTION: CT - Abdomen Pelvis Wo Contrast - 09/05/2018 9:03 pm CLINICAL HISTORY: Abdominal pain COMPARISON: None TECHNIQUE: Computed axial tomography of the abdomen and pelvis was obtained. IV was not requested. O ral contrast was given. Coronal reconstructions performed. All CT scans are performed using dose optimization technique as appropriate and may include automated exposure control or mA/KV adjustment according to patient size. FINDINGS: The evaluation of solid organs and vessels is limited secondary to the lack of contrast a dministration. The liver, spleen, pancreas, adrenals and kidneys appear grossly normal. The gallbladder has been removed. There is no evidence of diverticulitis. Small umbilical hernia The second portion of the duodenum is dilated with decompression of the third portion of the duodenum . The distance between the aorta and superior mesenteric artery appears mildly narrowed. IMPRESSION: The second portion of the duodenum is dilated with decompression of the third portion of the duodenum. The distance between the aorta and superior mesenteric artery appears narrowed. 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
--- NOTE | 2018-09-05 21:24 | RAD REPORT ---
EXAM DESCRIPTION: Fernando Single View09/05/2018 6:58 pm CLINICAL HISTORY: Cough COMPARISON: August 2018 FINDINGS: The lungs appear clear of acute infiltrate. The heart is normal size. . Pacemaker leads a re in place. IMPRESSION: No acute abnormalities displayed
[2018-09-06 02:48] VITALS: BMI 21.6
[2018-09-06 06:19] LABS: Absolute Lymphocytes (CBC) 2.2 K/uL (0.7-4.9); Absolute Monocytes 1.7 K/uL (0.1-1.3); Absolute Neutrophil 13.3 K/uL (1.8-8.0); Basophils % 0.3 % (0-1.3); Eosinophils % 0.1 % (0-4.4); Hematocrit 42.8 % (36.0-45.0); Lymphocytes % 12.6 % (15.3-44.8); MPV 12.4 fL (7.6-11.3); Monocytes % 9.7 % (3.3-12.3); RBC Red Blood Cell Count 4.53 M/uL (3.86-4.86)
[2018-09-06 06:44] LABS: Albumin 2.6 g/dL (3.4-5.0); Bilirubin Total 0.6 mg/dL (0.2-1.0); Magnesium 2.2 mg/dL (1.8-2.4); Phosphorus 4.3 mg/dL (2.5-4.9); Potassium 3.8 mmol/L (3.5-5.1); Protein, Total 4.9 g/dL (6.4-8.2)
[2018-09-06 08:01] LABS: Blood Morphology Comment NOT SEEN (NOT SEEN); Platelet Estimate DECR; Platelets, Giant FEW; Urine White Blood Cell Casts OK
[2018-09-06] MEDS ORDERED: METOPROLOL TAR 25 MG TAB PO PRN (08:09)
[2018-09-06] MEDS ORDERED: ONDANSETRON 4 MG (ODT) TAB PO PRN (08:24)
[2018-09-06] MEDS ORDERED: LISINOPRIL 5 MG TAB PO SCH (09:00)
[2018-09-06] MEDS ORDERED: ENOXAPARIN 40 MG/0.4 ML SQ SCH (09:00)
[2018-09-06] MEDS ORDERED: POTASSIUM CL SA 10 MEQ TAB PO ONE (09:00)
[2018-09-06] MEDS: ENOXAPARIN 30 MG/0.3 ML SQ SCH (09:30)
--- NOTE | 2018-09-06 09:31 | P.HP ---
Certification for Inpatient Patient admitted to: Inpatient With expected LOS: >2 Midnights Patient will require the following post-hospital care: None Practitioner: I am a practitioner with admitting privileges, knowledge of patient current condition, hospital course, and medical plan of care. Services: Services provided to patient in accordance with Admission requirements found in Title 42 Section 412.3 of the Code of Federal Regulations Patient History Date of Service: 09/05/18 Reason for admission: Chest pain r/o for ACS; acute kidney injury; leukocytosis History of Present Illness: Patient is a 77-year-old female came to the hospital with chest pain, as well as abdominal pain and nausea and vomiting. Patient to the hospital around [place] and she had multiple episodes of sustained ventricular tachycardia. She also went into cardiac arrest and required CPR. She came around quickly but she was life flighted to [place] were she had a pacemaker defibrillator placed. Patient was discharged and had been doing well on tell she has some discomfort a few days ago. She was discharged from the ER but is back in the ER for similar issues with chest discomfort. She is a little nervous with going home because of her symptoms keep recurring. At this time she will be admitted for her treatment over chest pain and abdominal pain. Will monitor her on telemetry as well. Allergies No Known Drug Allergies Allergy (Verified 08/19/18 15:15) Unknown Home Medications: Atorvastatin Calcium [Lipitor] 40 mg PO BEDTIME 09/06/18 Lisinopril [Prinivil*] 2.5 mg PO DAILY 09/06/18 Metoprolol Tartrate [Lopressor*] 12.5 mg PO Q12HP PRN 09/06/18 Ondansetron HCl [Zofran] 4 mg PO Q12HP PRN 09/06/18 - Past Medical/Surgical History Has patient received pneumonia vaccine in the past: No Diabetic: No -: Orthostatics hypotension -: Dyslipidemia -: Urinary incontinence -: Vertigo -: Dementia -: Cystoscopy and bladder lift/bladder suspension -: hysterectomy -: Cholecystectomy -: breast surgery -: knee surgery -: eye surgery - Family History Father Medical History: Heart disease, Lung disease Notes: PTB, lung cancer Mother Medical History: Heart disease, Cancer Notes: colon cancer - Social History Smoking Status: Former smoker Alcohol use: No CD- Drugs: No Caffeine use: Yes Place of Residence: Home Review of Systems 10-point ROS is otherwise unremarkable Physical Examination - Vital Signs Temperature: 97.5 F Blood Pressure: 130/61 Pulse: 83 Respirations: 18 Pulse Ox (%): 96 - Physical Exam General: Alert, In no apparent distress, Oriented x3 HEENT: Atraumatic, Normocephalic, PERRLA, Mucous membr. moist/pink Neck: Supple, 2+ carotid pulse no bruit, JVD not distended, No Thyromegaly, No LAD Respiratory: Clear to auscultation bilaterally, Normal air movement Cardiovascular: Regular rate/rhythm, Normal S1 S2, Systolic murmur Gastrointestinal: Soft and benign, Non-distended, No tenderness, No rebound, No guarding Musculoskeletal: No clubbing Integumentary: No rashes, No breakdown Neurological: Normal gait, Normal speech, Normal strength at 5/5 x4 extr, Normal tone, Sensation intact, Cranial nerves 3-12 intact, Normal reflexes 2+ Lymphatics: No axilla or inguinal lymphadenopathy - Studies Laboratory Data (last 24 hrs) 09/05/18 19:00: PT 12.4, INR 1.05 09/05/18 19:00: WBC 19.1 H D, Hgb 17.9 H, Hct 52.1 H D, Plt Count 90 L D 09/05/18 19:00: Sodium 136, Potassium 4.5, BUN 80 H D, Creatinine 2.05 H D, Glucose 96, Magnesium 2.4 D, Total Bilirubin 0.9, AST 13 L, ALT 23, Alkaline Phosphatase 109, Lipase 412 H Assessment & Plan - Problems (Diagnosis) (1) Chest pain, rule out acute myocardial infarction Current Visit: Yes Status: Acute (2) Acute exacerbation of CHF (congestive heart failure) Onset Date: 08/20/18 Current Visit: No Status: Acute Qualifiers: Heart failure type: combined systolic and diastolic Qualified Code(s): I50.43 - Acute on chronic combined systolic (congestive) and diastolic ( congestive) heart failure (3) Nausea & vomiting Current Visit: No Status: Acute (4) Ventricular tachycardia Current Visit: No Status: Acute (5) Dementia Current Visit: No Status: Chronic Qualifiers: Dementia type: Alzheimer's disease Alzheimer's disease onset: other onset Dementia behavioral disturbance: without behavioral disturbance Qualified Code(s): G30.8 - Other Alzheimer's disease; F02.80 - Dementia in other diseases classified elsewhere without behavioral disturbance (6) Tobacco abuse Onset Date: 08/20/18 Current Visit: No Status: Chronic (7) Leukocytosis Current Visit: Yes Status: Acute (8) Thrombocytopenia Current Visit: Yes Status: Acute (9) Elevated lipase Current Visit: Yes Status: Acute - Plan 1. Serial troponins and EKG 2. Cardiology consultation 3. Continue cardiac meds. 4. Anti-platelet therapy, anti coagulation, beta-juan a, statin, and O2 as needed 5. There is concern that patient may have superior mesenteric artery syndrome. Patient may need MRA. If her symptoms continued including abdominal pain and nausea vomiting she may need arteriogram while in the hospital. Discharge Plan: Home Plan to discharge in: Greater than 2 days - Advance Directives Does patient have a Living Will: Yes Does patient have a Durable POA for Healthcare: Yes - Code Status/Comfort Care Code Status Assessed: Yes Code Status: Full Code Critical Care: No Time Spent Managing PTS Care (In Minutes): 55
[2018-09-06 11:38] LABS: Urine Appearance CLOUDY; Urine Bilirubin NEGATIVE (NEG); Urine Blood NEGATIVE (NEG); Urine Color YELLOW; Urine Glucose NEGATIVE (NEG); Urine Protein NEGATIVE (NEG); Urine Urobilinogen 0.2 mg/dL (0.2-1.0); Urine pH 5.5 (5.0-7.0)
[2018-09-06 12:10] LABS: Urine Bacteria NONE SEEN /HPF (<20); Urine Culture Reflex Order NOT NEEDED; Urine Mucus LIGHT /HPF (NONE SEEN); Urine RBC <5 /HPF (NONE SEEN)
[2018-09-06 12:11] LABS: Urine Other Components NOTED (NONE SEEN)
[2018-09-06] MEDS: NA CHLORIDE 0.9% 1,000 ML IV SCH ×2 (13:00→21:56)
--- NOTE | 2018-09-06 13:16 | P.CNS ---
Date of Consult: 09/06/18 Reason for Consult: SINDHU Chief Complaint: Chest pain r/o for ACS; acute kidney injury; leukocytosis History of Present Illness: A 77 Y/O woman with PMhx of CHF EF ~40% , COPD , thrombocytopenia and HTN and dementia and urinary incontinence pt presnted for abd and chest pain , weakness and poor oral intake Pt was hospitalized recently for Chest pain and SOB, developed VT , had cardiac arrest , with successful recovery , didn't require incubation was transfeered to [facility] for cardiac cath and AICD as per son , pt had abd pain since her last admission, was feeling so weak, with poor oral intake no headache palpitation, or diarrhea pt is tender on exam all over her body Allergies No Known Drug Allergies Allergy (Verified 08/19/18 15:15) Unknown Home Medications: Atorvastatin Calcium [Lipitor] 40 mg PO BEDTIME 09/06/18 Lisinopril [Prinivil*] 2.5 mg PO DAILY 09/06/18 Metoprolol Tartrate [Lopressor*] 12.5 mg PO Q12HP PRN 09/06/18 Ondansetron HCl [Zofran] 4 mg PO Q12HP PRN 09/06/18 - Past Medical/Surgical History Diabetic: No -: Orthostatics hypotension -: Dyslipidemia -: Urinary incontinence -: Vertigo -: Dementia -: Dementia -: Cystoscopy and bladder lift/bladder suspension -: hysterectomy -: Cholecystectomy -: breast surgery -: knee surgery -: eye surgery - Family History Father Medical History: Heart disease, Lung disease Notes: PTB, lung cancer Mother Medical History: Heart disease, Cancer Notes: colon cancer - Social History Smoking Status: Never smoker Alcohol use: No CD- Drugs: No Caffeine use: Yes Place of Residence: Home Physical Examination Temp Pulse Resp BP Pulse Ox 97.5 F 83 18 130/61 96 09/06/18 09:37 09/06/18 09:37 09/06/18 09:37 09/06/18 09:37 09/06/18 09:37 General: Acute distress Neck: Supple, Without JVD or thyroid abnormality Respiratory: Clear to auscultation bilaterally, Normal air movement Cardiovascular: Regular rate/rhythm, Normal S1 S2, Edema Gastrointestinal: Normal bowel sounds, Soft and benign Laboratory Data (last 24 hrs) 09/05/18 19:00: PT 12.4, INR 1.05 09/05/18 19:00: WBC 19.1 H D, Hgb 17.9 H, Hct 52.1 H D, Plt Count 90 L D 09/05/18 19:00: Sodium 136, Potassium 4.5, BUN 80 H D, Creatinine 2.05 H D, Glucose 96, Magnesium 2.4 D, Total Bilirubin 0.9, AST 13 L, ALT 23, Alkaline Phosphatase 109, Lipase 412 H - Problems (1) Elevated lipase Current Visit: Yes Status: Acute (2) Thrombocytopenia Current Visit: Yes Status: Acute (3) Nausea & vomiting Current Visit: No Status: Acute Conclusions/Impression: SINDHU Cr in august 01.0 prerenal +/- contrast ATN Cr in ER 2.0 and improving to 1.8 on IVF will increase IV rate to 50ml/hr Abd CT: no hydro renal dose meds will dc LALA thrombocytopenia avoid heparin CHF compensated advanced dementia PT/OT
--- NOTE | 2018-09-06 13:32 | EKG ---
Test Date: 2018-09-05 Test Time: 17:41:37 Retail Sales Associate: TL MEASUREMENT RESULTS: Intervals: Rate: 80 [place]: 160 QRSD: 106 QT: 448 QTc: 516 [place]: P: 23 [place]: 160 QRS: -57 T: 135 INTERPRETIVE STATEMENTS: Atrial-paced rhythm Left anterior fascicular block Left ventricular hypertrophy with repolarization abnormality Prolonged QT Abnormal ECG Compared to ECG 08/28/2018 22:14:35 Early repolarization now present Sinus rhythm no longer present T-wave abnormality no longer present Possible ischemia no longer present Electronically Signed On 09-06-18 13:21:54 SURGICAL TECHNICIAN by Reynaldo Parker
[2018-09-06] MEDS: NYSTATIN PWDR 100000 UNIT/GM TOP PRN (17:10)
--- NOTE | 2018-09-06 20:11 | P.PN ---
Subjective Date of Service: 09/07/18 Chief Complaint: Chest pain r/o for ACS; acute kidney injury; leukocytosis Subjective: No new changes, No C/O voiced, Improving Patient seen and examined at bedside. Chart reviewed and case discussed with nursing staff. Patient without any new complaints. Review of Systems 10-point ROS is otherwise unremarkable Physical Examination - Vital Signs Temperature: 97.3 F Blood Pressure: 125/58 Pulse: 80 Respirations: 16 Pulse Ox (%): 100 - Physical Exam General: In no apparent distress, Confused HEENT: Atraumatic, PERRLA, EOMI Neck: Supple, JVD not distended Respiratory: Clear to auscultation bilaterally, Normal air movement Cardiovascular: Regular rate/rhythm, Normal S1 S2 Gastrointestinal: Normal bowel sounds, No tenderness Musculoskeletal: No tenderness Integumentary: No rashes Neurological: Normal speech, Normal tone, Normal affect Lymphatics: No axilla or inguinal lymphadenopathy Assessment And Plan - Plan (1) Chest pain, rule out acute myocardial infarction Current Visit: Yes Status: Acute (2) Acute exacerbation of CHF (congestive heart failure) Onset Date: 08/20/18 Current Visit: No Status: Acute Qualifiers: Heart failure type: combined systolic and diastolic Qualified Code(s): I50.43 - Acute on chronic combined systolic (congestive) and diastolic ( congestive) heart failure (3) Nausea & vomiting Current Visit: No Status: Acute (4) Ventricular tachycardia Current Visit: No Status: Acute (5) Dementia Current Visit: No Status: Chronic Qualifiers: Dementia type: Alzheimer's disease Alzheimer's disease onset: other onset Dementia behavioral disturbance: without behavioral disturbance Qualified Code(s): G30.8 - Other Alzheimer's disease; F02.80 - Dementia in other diseases classified elsewhere without behavioral disturbance (6) Tobacco abuse Onset Date: 08/20/18 Current Visit: No Status: Chronic (7) Leukocytosis Current Visit: Yes Status: Acute (8) Thrombocytopenia Current Visit: Yes Status: Acute (9) Elevated lipase Current Visit: Yes Status: Acute - Plan 1. Serial troponins and EKG 2. Cardiology consultation, recommendations appreciated. 3. Continue cardiac meds. 4. Anti-platelet therapy, anti coagulation, beta-juan a, statin, and O2 as needed Discussed goals of care extensively with son (RJ) who is aware of poor overall prognosis for the patient. He would like to convert patient to DNR. Social work to be consulted for OOH DNR.
[2018-09-06] MEDS: ATORVASTATIN 40 MG TAB PO SCH (21:55)
--- NOTE | 2018-09-06 21:59 | CON ---
Date of Consultation: 09/06/2018 Admitted on 09/05/[address] Patrick. I saw the patient on 09/06/2018. Reason For Consultation: Abnormal BNP and congestive heart failure and history of defibrillator. History Of Present Illness: Ms. Diana is a 77-year-old woman. She was here in August of 2018, broussard d an ejection fraction of 40% with mild pulmonary hypertension. She had large pleural effusion. She had a negative stress test for ischemia, but had ventricular tachycardia, a long QT, and I suggested a heart catheterization with possible defibrillator, but at that time, she was reluctant and wanted to think about it. Since then, she had an episode of ventricular tachycardia, underwent catheterizat ion, found to have normal coronaries. She has an AICD/biventricular pacemaker right now that was júnior sincere since last admission. She came in with prerenal azotemia, dehydration, abdominal pain, nausea, v omiting, and atypical chest pain as well as altered mental status and worsened dementia. Allergies: NONE. Review of Systems: Negative. Social History: Negative. Family History: Negative. Medications: Include lisinopril, metoprolol, Lipitor, Zofran. Physical Examination: General: She was somnolent. Alert, oriented to time and name, but not place. Family was available and aware of her situation. They said that she has been unable to eat for a few days. HEENT: Negative. Neck: Supple with no bruit. Chest: Clear to auscultation and percussion. Cardiac: Revealed a regular rhythm and rate. No murmurs, gallops, or rubs. Abdomen: Soft, nontender. Positive bowel sounds. Extremities: Revealed no edema. Diagnostic Data: Creatinine was 1.8. EKG was paced rhythm. White count was 17,000. Lipase 412. B RETAIL SPECIALIST was 1742. CT scan of the abdomen without contrast showed possible superior mesenteric artery synd morteza. Impression And Plan: 1.Prerenal azotemia secondary to dehydration. 2.Chronic systolic congestive heart failure. 3.History of ventricular tachycardia with long QT, status post AICD/biventricular pacemaker. 4.Hypertension. 5.Dyslipidemia. 6.Possible pancreatitis. 7.Mild pulmonary hypertension. 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 I think the patient needs to be hydrated. She needs to have her lisinopril probably held for now. I will discuss the case further with Dr. Patrick; maybe there is an MRA or a CT angiogram to document he r superior mesenteric artery syndrome. No cardiac workup indicated at this point. Surgical consulta tion may be reasonable regarding her pancreas and her SMA syndrome. She needs Social Work to see her as per family's request. I will follow her along. MARISELA Voice ID: [id number] Report ID: [id number]
[2018-09-06 22:42] VITALS: O2SAT 98
[2018-09-07 05:53] LABS: Potassium 3.7 mmol/L (3.5-5.1)
[2018-09-07] MEDS: ENOXAPARIN 30 MG/0.3 ML SQ SCH (09:00)
[2018-09-07] MEDS ORDERED: POTASSIUM CL SA 10 MEQ TAB PO ONE (09:00)
[2018-09-07] MEDS: NA CHLORIDE 0.9% 1,000 ML IV SCH (09:00)
[2018-09-07] MEDS: NYSTATIN PWDR 100000 UNIT/GM TOP PRN (14:09)
[2018-09-07] MEDS: ATORVASTATIN 40 MG TAB PO SCH (20:07)
--- NOTE | 2018-09-07 22:22 | P.PN ---
Subjective Date of Service: 09/07/18 Chief Complaint: Chest pain r/o for ACS; acute kidney injury; leukocytosis Patient seen and examined at bedside. Chart reviewed and case discussed with nursing staff. Patient confused this morning - yelled at nursing staff and everyone to get out of her room as she thought she was barricaded in a room. Per son, this is baseline (intermittent confusion) Review of Systems 10-point ROS is otherwise unremarkable Physical Examination - Vital Signs Temperature: 97.3 F Blood Pressure: 125/58 Pulse: 80 Respirations: 16 Pulse Ox (%): 100 Assessment And Plan - Plan (1) Chest pain, rule out acute myocardial infarction Current Visit: Yes Status: Acute (2) Acute exacerbation of CHF (congestive heart failure) Onset Date: 08/20/18 Current Visit: No Status: Acute Qualifiers: Heart failure type: combined systolic and diastolic Qualified Code(s): I50.43 - Acute on chronic combined systolic (congestive) and diastolic ( congestive) heart failure (3) Nausea & vomiting Current Visit: No Status: Acute (4) Ventricular tachycardia Current Visit: No Status: Acute (5) Dementia Current Visit: No Status: Chronic Qualifiers: Dementia type: Alzheimer's disease Alzheimer's disease onset: other onset Dementia behavioral disturbance: without behavioral disturbance Qualified Code(s): G30.8 - Other Alzheimer's disease; F02.80 - Dementia in other diseases classified elsewhere without behavioral disturbance (6) Tobacco abuse Onset Date: 08/20/18 Current Visit: No Status: Chronic (7) Leukocytosis Current Visit: Yes Status: Acute (8) Thrombocytopenia Current Visit: Yes Status: Acute (9) Elevated lipase Current Visit: Yes Status: Acute - Plan 1. Serial troponins and EKG 2. Cardiology consultation, recommendations appreciated. 3. Continue cardiac meds. 4. Anti-platelet therapy, anti coagulation, beta-juan a, statin, and O2 as needed Discussed goals of care extensively with son (RJ) who is aware of poor overall prognosis for the patient. He would like to convert patient to DNR. Social work to be consulted for OOH DNR. RJ decided on hospice care; SW on board, working on Hospice plus a facility set up.
--- NOTE | 2018-09-08 03:40 | PN ---
Date of Progress Note: 09/07/2018 Chief Complaint: Acute kidney injury. History Of Present Illness: Acute kidney injury, severe, nonoliguric. The patient presented to the hospital on September 05, who was found to have BUN of 80, creatinine of 2.05. Baseline creatinine level is 1.1. Blood work obtained on August 28 showed BUN 33, creatinine 0.1, estimated GFR was 53. The patient has moderately severe and nonoliguric acute kidney injury. Renal function has not improved significantly over the last 24 hours. The patient has history of congestive heart failure with systolic dysfunction, COPD, thrombocytopenia, hypertension, dementia, and urinary incontinence. She presented to the hospital because of abdominal pain, chest pain, weakness, and decreased p.o. intake. She recently was hospitalized with chest pain and shortness of breath. She has a cardiac arrest with multiple arrhythmia type abnormalities. She developed V-tach. She had an ICD placed. Review of Systems: The patient is feeling better today. Denies chest pain or palpitation. Physical Examination: LUNGS: Clear to auscultation bilaterally. HEART: S1 and S2. ABDOMEN: Soft. Benign. EXTREMITIES: Slight edema. Laboratory Data: Blood work; WBC 19.1, hemoglobin 17.9, hematocrit 52.1, and platelet count 90,000. Sodium 136, potassium 4.5, BUN 80, creatinine 2.05, glucose 86, lipase 412. Yesterday, BUN was 76 and creatinine 1.8. Today, creatinine is 1.23 and BUN 50. Impression And Plan: Acute on chronic kidney injury with prerenal azotemia, nonoliguric, acute tubular necrosis. Avoid nephrotoxic medication. The patient was taking LALA inhibitor, was contributory to prerenal azotemia. The patient has history of dementia, vertigo. Monitor electrolytes and fluid balance. The patient can tolerate p.o. intake. 1. Hypertension, continue low-sodium diet and blood pressure medication. 2. History of urinary tract infection and check urine culture. 3. Acute kidney injury, the patient will continue IV fluids. CT scan of the abdomen and pelvis did not show hydronephrosis. Recommend to adjust Bp meds and monitor blood pressure. LALA inhibitor will not be used for blood pressure control due to acute kidney injury. I spent total 36 min including 25 min to coordinate care plan. GABRIEL/BELKIS Voice ID: [id number] Report ID: [id number] MTDD
[2018-09-08] MEDS: NA CHLORIDE 0.9% 1,000 ML IV SCH (05:00)
[2018-09-08 06:20] LABS: Potassium 3.5 mmol/L (3.5-5.1)
[2018-09-08] MEDS ORDERED: POTASSIUM CL SA 10 MEQ TAB PO ONE (09:00)
[2018-09-08] MEDS ORDERED: HYDROCODONE/APAP 7.5/325 MG TAB PO PRN (09:09)
[2018-09-08 17:17] VITALS: BP 126/59; TEMP 97.3
--- NOTE | 2018-09-08 20:13 | PN ---
Date of Progress Note: 09/08/2018 Subjective: Patient is doing better. Objective: Vital Signs: Blood pressure 125/56, pulse of 88, afebrile. Chest: Clear to auscultation. Heart: S1, S2. Regular. Abdomen: Soft, nontender. Extremities: No edema. Laboratory Data: WBC 17.2, H and H of 14.9/42.8, platelet of 66. Sodium 140, potassium 3.5, bicarb 18, BUN 26, creatinine down to normal 0.6, calcium 7.6. Current Medications: The patient on its include atorvastatin, metoprolol 12.5, Tylenol, alprazolam, IV fluid at 50 per hour of normal saline. Assessment And Plan: 1.Acute kidney injury secondary to prerenal, recovered, resolved. I am going to go ahead and discon tinue IV fluid. We will monitor. 2.Hypertension, currently controlled, optimal. Continue current medication. Avoid LALA inhibitor or ARB. 3.Gastroenteritis. 4.Tachycardia, recovered, stable. Discontinue IV fluid. Patient cleared from the renal standpoint for discharge planning. KEVON Voice ID: [id number] Report ID: [id number]
--- NOTE | 2018-09-09 14:35 | DS ---
Date of Discharge: 09/08/2018 Consultants: Dr. Bowles with Nephrology, Dr. Parker with Cardiology. Code status: DNR Admitting Diagnoses: 1. Chest pain, rule out acute coronary syndrome. 2. Acute exacerbation of CHF, combined systolic and diastolic dysfunction. 3. Nausea and vomiting. 4. Ventricular tachycardia. 5. Dementia, Alzheimer's type, early onset without behavioral disturbance. 6. Nicotine dependence with cigarette smoking, continuous. 7. Leukocytosis. 8. Thrombocytopenia. 9. Elevated lipase level. Discharge Diagnoses: 1. Chest pain, acute coronary syndrome ruled out. 2. Acute exacerbation of CHF, combined systolic and diastolic dysfunction. 3. Nausea and vomiting, resolved. 4. Ventricular tachycardia. 5. Dementia, Alzheimer's type, early onset without behavioral disturbance. 6. Nicotine dependence with cigarette smoking, counseled. 7. Leukocytosis, improving. 8. Thrombocytopenia. 9. Elevated lipase levels. 10. Superior mesenteric artery syndrome. 11. [facility] Hospital Course: The patient is a 77-year-old female with history of recent sustained ventricular tachycardia, cardiac arrest, requiring CPR, transferred to [facility], status post pacemaker defibrillator placement, who comes in with chest pain to rule out ACS. The patient also has some acute kidney injury and leukocytosis. The patient's workup including blood cultures, urine culture , and C. diff assay were all negative. Her WBC count trended downwards. The patient's medical power of litigation attorney associate, sonBarrington, switched the patient's code status to DNR and essentially were working towards hospice. However, then the patient's medical power of litigation attorney associate decided to pursue care home facility and then to pursue hospice at once at the nursing facility. The patient was also found to have superior mesenteric artery syndrome. However, son was not interested in any surgical evaluation or surgical treatment at this time and conservative measures will be used. The patient overall did well. She was able to tolerate her diet. Nausea and vomiting resolved. Cardiology did not recommend any further intervention. The patient does have recurrent issues of chest pain and will likely have recurrent symptoms. She does have a pacemaker defibrillator in place. The patient was then cleared for discharge. Her kidney function normalized. Her lisinopril will be discontinued due to the acute tubular necrosis. The patient is on narcotics for pain. The patient was then accepted to [facility] nursing [facility]. The patient was discharged to [place] in a fair condition. Activity: Fall precautions. Medications: As per medication reconciliation list. Followup: 1. Follow up with primary care physician in 2 days. 2. Follow up with wafer production lead worker, Dr. Bowles, in 2 weeks. 3. Follow up with button station worker, Dr. Parker in 2 weeks. 4. Return to ER for worsening condition. Diet: Heart healthy. Total time spent discharging the patient was 32 minutes. Physical Examination: General: Awake, alert, oriented x1, elderly female. CV: S1, S2. Peripheral pulses present. RESPIRATORY: Moving air well bilaterally. Abdomen: Abdomen is soft, nontender, nondistended. Positive bowel sounds. Extremities: No clubbing, cyanosis. The patient does have lower extremity edema. Neurologic: Nonfocal. SA/MODL Voice ID: [id number] Report ID: [id number] MTDD
== END 2018-09-08 19:53 | DRG 682 ==
LOC: ER 17:30 → ERHOLD 20:41 → 2ND 22:00
PROVIDERS: ADMIT Family Medicine; ATTEND Family Medicine
DX: N17.0 Acute kidney failure with tubular necrosis (principal); I50.43 Acute on chronic combined systolic (congestive) and diastolic (congestive) heart failure; I47.2 Ventricular tachycardia; I13.0 Hypertensive heart and chronic kidney disease with heart failure and stage 1 through stage 4 chronic kidney disease, or unspecified chronic kidney disease; K55.1 Chronic vascular disorders of intestine; N17.9 Acute kidney failure, unspecified; R07.9 Chest pain, unspecified; E78.5 Hyperlipidemia, unspecified; F03.90 Unspecified dementia, unspecified severity, without behavioral disturbance, psychotic disturbance, mood disturbance, and anxiety; F17.200 Nicotine dependence, unspecified, uncomplicated; D69.6 Thrombocytopenia, unspecified; R79.89 Other specified abnormal findings of blood chemistry; E86.0 Dehydration; I27.20 Pulmonary hypertension, unspecified; N18.9 Chronic kidney disease, unspecified; K52.9 Noninfective gastroenteritis and colitis, unspecified; Z95.810 Presence of automatic (implantable) cardiac defibrillator
CPT/HCPCS: 36415; 51702; 71045; 74176; 80048; 80053; 80076; 81001; 82274; 83605; 83690; 83735; 83880; 84100; 84145; 84484; 85025; 85610; 87040; 87086; 87088; 87493; 93005; 96361; 96374; 96375; 99285; J0696; J1650; J2405; J7030

== ENCOUNTER 2018-09-14 00:31 | Observation (INO) | payer OTHER ==
--- OUTSIDE RECORDS SUMMARY | 2018-09-14 00:33 | XMS REPORT | Clinical Summary ---
:1940 Author Organization [facility] Address [address] [place] [address] Care Team Providers Name Role Phone Unavailable [...] Not on file Results Not on fileafter 09/13/2017
[2018-09-14 01:13] LABS: Protime INR 1.06
[2018-09-14 01:23] LABS: Absolute Lymphocytes (CBC) 2.3 K/uL (0.7-4.9); Absolute Monocytes 0.9 K/uL (0.1-1.3); Absolute Neutrophil 9.7 K/uL (1.8-8.0); Basophils % 0.3 % (0-1.3); Eosinophils % 0.8 % (0-4.4); Hematocrit 40.7 % (36.0-45.0); Lymphocytes % 17.6 % (15.3-44.8); MPV 10.2 fL (7.6-11.3); Monocytes % 6.9 % (3.3-12.3); RBC Red Blood Cell Count 4.36 M/uL (3.86-4.86)
[2018-09-14 01:27] LABS: Magnesium 1.7 mg/dL (1.8-2.4); Potassium 3.7 mmol/L (3.5-5.1); Troponin (Emerg Dept Use Only) 0.13 ng/mL (0.0-0.045)
[2018-09-14] MEDS ORDERED: NA CHLORIDE 0.9% 500 ML ONE (01:35)
--- NOTE | 2018-09-14 02:15 | EDPHYS ---
Physician Documentation [facility] Name: Sita Diana Age: 77 yrs Sex: Female : 1940 Arrival Date: 09/14/2018 Time: 00:34 Bed 16 Private MD: ED Physician Matt Jefferson HPI: 09/14 00:59 This 77 yrs old Female presents to ER via EMS with complaints of chest pain. rn 00:59 The patient or guardian reports chest pain that is located primarily in the substernal rn area. Onset: 2 day(s) ago. The pain does not radiate. Associated signs and symptoms: Pertinent positives: None. Pertinent negatives: abdominal pain, shortness of breath, syncope, vomiting. The chest pain is described as "explosion". Duration: The patient or guardian reports a single episode. Modifying factors: The symptoms are alleviated by nothing. the symptoms are aggravated by nothing. Severity of pain: At its worst the pain was moderate in the emergency department the pain has improved. The patient has not experienced similar symptoms in the past. Per report from [facility], woken up with chest pain last 2 nights, relieved with norco 7.5, tonight felt "explosion" in chest, short lived, and now only feels a little bit of pain. Reports decreased PO intake due to nausea for a few weeks. Pacemaker just placed 3-4 weeks ago. . Historical: - Allergies: 00:50 No Known Allergies; aa1 - Home Meds: 01:03 Acetaminophen Oral 2 tabs as needed for Pain [Active]; atorvastatin 40 mg Oral tab aa1 nightly [Active]; [place] 7.5-325 mg Oral tab as needed for Pain [Active]; metoprolol tartrate 25 mg Oral tab 0.5 tab 2 times per day [Active]; mirtazapine 15 mg Oral TbDL 1 tab once daily [Active]; nystatin 100,000 unit/gram Topical powd 2 times per day [Active]; Zioptan (PF) 0.0015 % ophthalmic dpet 1 drop once daily [Active]; Zofran (as hydrochloride) 4 mg Oral tab as needed [Active]; - PMHx: 00:50 Hyperlipidemia; CHF; Dementia; Hypertension; Glaucoma; aa1 - PSHx: 00:50 Pacemaker/Defibrillator (08/24/18); aa1 - Immunization history:: Flu vaccine is up to date. - Social history:: Smoking status: Patient/guardian denies using tobacco. - Ebola Screening: : No symptoms or risks identified at this time. - Family history:: not pertinent. - Hospitalizations: : Patient was recently seen at. ROS: 00:59 Constitutional: Negative for fever, chills, and weight loss, Eyes: Negative for injury, rn pain, redness, and discharge, Neck: Negative for injury, pain, and swelling, Cardiovascular: Negative for palpitations, and edema, Respiratory: Negative for shortness of breath, cough, wheezing, and pleuritic chest pain, Abdomen/GI: Negative for abdominal pain, vomiting, diarrhea, and constipation, MS/Extremity: Negative for injury and deformity, Skin: Negative for injury, rash, and discoloration, Neuro: Negative for headache, weakness, numbness, tingling, and seizure. Exam: 00:59 Constitutional: This is a well developed, well nourished patient who is awake, alert, rn and in no acute distress. Head/Face: Normocephalic, atraumatic. Eyes: Pupils equal round and reactive to light, extra-ocular motions intact. Lids and lashes normal. Conjunctiva and sclera are non-icteric and not injected. Cornea within normal limits. Periorbital areas with no swelling, redness, or edema. Cardiovascular: Regular rate and rhythm with a normal S1 and S2. No pulse deficits. Respiratory: Lungs have equal breath sounds bilaterally, clear to auscultation Abdomen/GI: soft, non-tender MS/ Extremity: Pulses equal, no cyanosis. Neurovascular intact. Full, normal range of motion. Equal circumference. Neuro: Awake and alert, GCS 15, oriented to person, place, time, and situation. Cranial nerves II-XII grossly intact. Motor strength 5/5 in all extremities. Sensory grossly intact. Vital Signs: 00:50 BP 140 / 90; Pulse 112; Resp 18; Temp 97.5; Pulse Ox 98% on R/A; Weight 57.61 kg; aa1 Height 5 ft. 2 in. (157.48 cm); Pain 0/10; 01:28 BP 114 / 90; Pulse 87; Resp 16; Pulse Ox 97% on R/A; Pain 0/10; aa1 02:30 BP 114 / 69; Pulse 102; Resp 20; Pulse Ox 97% on R/A; Pain 0/10; aa1 03:51 BP 106 / 67; Pulse 96; Resp 20; Pulse Ox 98% on R/A; Pain 0/10; aa1 00:50 Body Mass Index 23.23 (57.61 kg, 157.48 cm) aa1 MDM: 00:43 Patient medically screened. rn 02:11 Differential diagnosis: acute pericarditis, anxiety, coronary artery disease. rn 02:11 The patient was given aspirin in the Emergency Department. Data reviewed: vital signs, rn nurses notes, lab test result(s), EKG, radiologic studies, plain films, and as a result, I will admit patient. Counseling: I had a detailed discussion with the patient and/or guardian regarding: the historical points, exam findings, and any diagnostic results supporting the discharge/admit diagnosis, lab results, radiology results, the need for further work-up and treatment in the hospital. Admission orders: after a detailed discussion of the patient's condition and case, the admit orders are written by me. ED course: Attempted to get [facility] to give information of defibrillator or monitor, [facility] staff unaware of card/model/monitor. Elevated BNP and troponin, patient feels better, possible that had a defibrillation while asleep, will admit for observation and pacemaker interrogation. . 09/14 00:43 Order name: Basic Metabolic Panel; Complete Time: rn 09/14 00:43 Order name: CBC with Diff; Complete Time: rn 09/14 00:43 Order name: Magnesium; Complete Time: 09/14 00:43 Order name: NT PRO-BNP; Complete Time: 09/14 00:43 Order name: PT-INR; Complete Time: rn 09/14 00:43 Order name: Troponin (emerg Dept Use Only); Complete Time: 09/14 00:43 Order name: XRAY Chest (1 view) rn 09/14 00:43 Order name: EKG; Complete Time: 00:44 09/14 00:43 Order name: Cardiac monitoring; Complete Time: : rn 09/14 00:43 Order name: EKG - Nurse/Tech; Complete Time: 01:11 rn 09/14 00:43 Order name: IV Saline Lock; Complete Time: 01: rn 09/14 00:43 Order name: Labs collected and sent; Complete Time: : rn 09/14 00:43 Order name: O2 Per Protocol; Complete Time: : rn 09/14 00:43 Order name: O2 Sat Monitoring; Complete Time: : rn Administered Medications: 01:28 Drug: NS 0.9% 500 ml Route: IV; Rate: bolus; Site: left antecubital; aa1 02:30 Follow up: IV Status: Completed infusion aa1 02:59 Drug: Aspirin Chewable Tablet 324 mg Route: PO; aa1 04:00 Follow up: Response: No adverse reaction aa1 Disposition: 09/14/18 02:14 Hospitalization ordered by Gaviota Velazquez for Observation. Preliminary diagnosis is Chest pain, unspecified. - Bed requested for Telemetry/MedSurg (observation). - Status is Observation. aa1 - Condition is Stable. - Problem is new. - Symptoms have improved. UTI on Admission? No Signatures: Dispatcher [employer] EDMS Herminia Blair RN RN kl Agueda Issa RN RN aa1 Matt Jefferson MD MD rn home health: (The following items were deleted from the chart) 03:48 02:14 Hospitalization Ordered by Gaviota Velazquez MD for Observation. Preliminary kl diagnosis is Chest pain, unspecified. Bed requested for Telemetry/MedSurg (observation). Status is Observation. Condition is Stable. Problem is new. Symptoms have improved. UTI on Admission? No. rn 04:15 03:48 09/14/2018 02:14 Hospitalization Ordered by Gaviota Velazquez MD for Observation. aa1 Preliminary diagnosis is Chest pain, unspecified. Bed requested for Telemetry/MedSurg (observation). Status is Observation. Condition is Stable. Problem is new. Symptoms have improved. UTI on Admission? No. kl
--- NOTE | 2018-09-14 02:15 | ER ---
Nurse's Notes [facility] Name: Sita Diana Age: 77 yrs Sex: Female : 1940 Arrival Date: 09/14/2018 Time: 00:34 Bed 16 Private MD: Diagnosis: Chest pain, unspecified Presentation: 09/14 00:37 Presenting complaint: EMS states: pt's nurse at [facility] reported that pt woke up screaming aa1 tonight stating that she had an "explosion" in her chest. Reports pt recently had a pacemaker placed. Pt was also given [place] 7.5 GREEN [employer]AIN PULLER. Upon arrival to ED pt denies pain or any other symptoms. Transition of care: patient was received from another setting of care ([facility]. Onset of symptoms was September 14, 2018. Risk Assessment: Do you want to hurt yourself or someone else? Patient reports no desire to harm self or others. Initial Sepsis Screen: Does the patient meet any 2 criteria? No. Patient's initial sepsis screen is negative. Does the patient have a suspected source of infection? No. Patient's initial sepsis screen is negative. Care prior to arrival: IV initiated. 20 GA, in the left antecubital area. 00:37 Method Of Arrival: EMS: [facility] aa1 00:37 Acuity: CROW 2 aa1 Historical: - Allergies: 00:50 No Known Allergies; aa1 - Home Meds: 01:03 Acetaminophen Oral 2 tabs as needed for Pain [Active]; atorvastatin 40 mg Oral tab aa1 nightly [Active]; [place] 7.5-325 mg Oral tab as needed for Pain [Active]; metoprolol tartrate 25 mg Oral tab 0.5 tab 2 times per day [Active]; mirtazapine 15 mg Oral TbDL 1 tab once daily [Active]; nystatin 100,000 unit/gram Topical powd 2 times per day [Active]; Zioptan (PF) 0.0015 % ophthalmic dpet 1 drop once daily [Active]; Zofran (as hydrochloride) 4 mg Oral tab as needed [Active]; - PMHx: 00:50 Hyperlipidemia; CHF; Dementia; Hypertension; Glaucoma; aa1 - PSHx: 00:50 Pacemaker/Defibrillator (12/24/18); aa1 - Immunization history:: Flu vaccine is up to date. - Social history:: Smoking status: Patient/guardian denies using tobacco. - Ebola Screening: : No symptoms or risks identified at this time. - Family history:: not pertinent. - Hospitalizations: : Patient was recently seen at. Screenin:52 Abuse screen: Denies threats or abuse. Denies injuries from another. Nutritional aa1 screening: No deficits noted. Tuberculosis screening: No symptoms or risk factors identified. Fall Risk None identified. Assessment: 00:52 General: Appears in no apparent distress. comfortable, slender, Behavior is calm, aa1 cooperative, appropriate for age. Pain: Denies pain. Neuro: Level of Consciousness is awake, alert, obeys commands, Oriented to person, place, situation, Speech is normal. Cardiovascular: Denies chest pain, palpitations, shortness of breath, Heart tones S1 S2 present Rhythm is Respiratory: Airway is patent Respiratory effort is even, unlabored, Respiratory pattern is regular, symmetrical. GI: No signs and/or symptoms were reported involving the gastrointestinal system. : No signs and/or symptoms were reported regarding the genitourinary system. EENT: No signs and/or symptoms were reported regarding the EENT system. Derm: Skin is intact, is healthy with good turgor, Skin is pink, warm \\T\\ dry. Musculoskeletal: Circulation, motion, and sensation intact. Capillary refill < 3 seconds. 01:45 Reassessment: Patient appears in no apparent distress at this time. No changes from aa1 previously documented assessment. Patient and/or family updated on plan of care and expected duration. Pain level reassessed. Awaiting lab results. 02:45 Reassessment: Patient appears in no apparent distress at this time. No changes from aa1 previously documented assessment. Patient and/or family updated on plan of care and expected duration. Pain level reassessed. Pt to be admitted; awaiting bed assignment. 03:50 Reassessment: Patient appears in no apparent distress at this time. No changes from aa1 previously documented assessment. Patient and/or family updated on plan of care and expected duration. Pain level reassessed. Attempted to call report to 2nd floor, was told nurse unavailable and will call back shortly. 04:13 Reassessment: Patient appears in no apparent distress at this time. Report given to aaCathie Pierce on 2nd floor. Vital Signs: 00:50 BP 140 / 90; Pulse 112; Resp 18; Temp 97.5; Pulse Ox 98% on R/A; Weight 57.61 kg; aa1 Height 5 ft. 2 in. (157.48 cm); Pain 0/10; 01:28 BP 114 / 90; Pulse 87; Resp 16; Pulse Ox 97% on R/A; Pain 0/10; aa1 02:30 BP 114 / 69; Pulse 102; Resp 20; Pulse Ox 97% on R/A; Pain 0/10; aa1 03:51 BP 106 / 67; Pulse 96; Resp 20; Pulse Ox 98% on R/A; Pain 0/10; aa1 00:50 Body Mass Index 23.23 (57.61 kg, 157.48 cm) aa1 ED Course: 00:34 Patient arrived in ED. al2 00:36 Agueda Issa, AYANNA is Primary Nurse. aa1 00:42 Triage completed. aa1 00:43 Matt Jefferson MD is Attending Physician. rn 00:50 Arm band placed on left wrist. aa1 00:52 Patient has correct armband on for positive identification. Placed in gown. Bed in low aa1 position. Call light in reach. Side rails up X2. hospital monitor on. Pulse ox on. NIBP on. Warm blanket given. 00:52 EKG done, by ED staff, reviewed by Matt Jefferson MD. Initial lab(s) drawn, by ED staff, aa1 sent to lab. Maintain EMS IV. Dressing intact. Good blood return noted. Site clean \\T\\ dry. Gauge \\T\\ site: 20g LAC. 01:09 XRAY Chest (1 view) In Process Unspecified. EDMS 02:14 Gaviota Velazquez MD is Hospitalizing Provider. rn 03:51 No provider procedures requiring assistance completed. Patient admitted, IV remains in aa1 place. Administered Medications: 01:28 Drug: NS 0.9% 500 ml Route: IV; Rate: bolus; Site: left antecubital; aa1 02:30 Follow up: IV Status: Completed infusion aa1 02:59 Drug: Aspirin Chewable Tablet 324 mg Route: PO; aa1 04:00 Follow up: Response: No adverse reaction aa1 Outcome: 02:14 Decision to Hospitalize by Provider. rn 04:13 Admitted to Tele accompanied by tech, family with patient, via stretcher, room 220, aa1 with chart, Report called to Kari 04:13 Condition: stable 04:13 Instructed on the need for admit, Demonstrated understanding of instructions. 04:15 Patient left the ED. aa1 Signatures: Dispatcher [employer] Agueda Hdz RN RN aa1 Matt Jefferson MD MD rn Love, Angelica al2
--- NOTE | 2018-09-14 03:05 | P.HP ---
Certification for Inpatient Patient admitted to: Observation With expected LOS: <2 Midnights Practitioner: I am a practitioner with admitting privileges, knowledge of patient current condition, hospital course, and medical plan of care. Services: Services provided to patient in accordance with Admission requirements found in Title 42 Section 412.3 of the Code of Federal Regulations Patient History Date of Service: 09/14/18 Reason for admission: chest pain History of Present Illness: Ms Diana is a 77 years old woman with history of Long QT syndrome s/p AICD placement, dementia, HTN, who is resident from a local fdc, came to the hospital complaining of chest pain. She describe that she felt like an explosion in her chest. She denied SOB, nausea, vomiting, diaphoresis or palpitations. She has never had this feeling in the past. Lab work remarkable for elevated trop I 0.13, Leukocytosis 13.0K, EKG sinus tachycardia without ST abnormalities. Allergies No Known Drug Allergies Allergy (Verified 08/19/18 15:15) Unknown Home medications list reviewed: Yes Home Medications: Atorvastatin Calcium [Lipitor] 40 mg PO BEDTIME 09/06/18 Metoprolol Tartrate [Lopressor*] 12.5 mg PO Q12HP PRN 09/06/18 Ondansetron HCl [Zofran] 4 mg PO Q12HP PRN 09/06/18 Hydrocodone 7.5/APAP 325 [[place] 7.5/325 mg*] 1 tab PO Q6H PRN tab 09/08/18 Nystatin Powder [Mycostatin (Powder)*] 1 appl TOP DAILY PRN #1 btl 09/08/18 - Past Medical/Surgical History Diabetic: No -: Orthostatics hypotension -: Dyslipidemia -: Urinary incontinence -: Vertigo -: Dementia -: Dementia -: Cystoscopy and bladder lift/bladder suspension -: hysterectomy -: Cholecystectomy -: breast surgery -: knee surgery -: eye surgery - Family History Father -: Heart disease, Lung disease Notes: PTB, lung cancer Mother -: Heart disease, Cancer Notes: colon cancer - Social History Alcohol use: No CD- Drugs: No Caffeine use: Yes Place of Residence: [facility] Review of Systems 10-point ROS is otherwise unremarkable Physical Examination - Physical Exam General: Alert, In no apparent distress HEENT: Atraumatic, PERRLA, Mucous membr. moist/pink, EOMI, Sclerae nonicteric Neck: Supple, 2+ carotid pulse no bruit, No LAD, Without JVD or thyroid abnormality Respiratory: Clear to auscultation bilaterally, Normal air movement Cardiovascular: Regular rate/rhythm, Normal S1 S2 Gastrointestinal: Normal bowel sounds, No tenderness Musculoskeletal: No tenderness Integumentary: No rashes Neurological: Normal speech, Normal strength at 5/5 x4 extr, Normal tone, Normal affect Lymphatics: No axilla or inguinal lymphadenopathy - Studies Laboratory Data (last 24 hrs) 09/14/18 01:00: PT 12.5, INR 1.06 09/14/18 01:00: WBC 13.0 H D, Hgb 13.9, Hct 40.7, Plt Count 126 L D 09/14/18 01:00: Sodium 135 L, Potassium 3.7, BUN 14, Creatinine 0.75, Glucose 64 L, Magnesium 1.7 L D Assessment and Plan - Problems (Diagnosis) (1) Chest pain Current Visit: Yes Status: Acute Qualifiers: Chest pain type: other chest pain Qualified Code(s): R07.89 - Other chest pain; R07.8 - Other chest pain (2) Leukocytosis Onset Date: 09/07/18 Current Visit: No Status: Acute Qualifiers: Leukocytosis type: unspecified Qualified Code(s): D72.829 - Elevated white blood cell count, unspecified (3) Ventricular tachycardia Onset Date: 09/07/18 Current Visit: No Status: Acute (4) Dementia Onset Date: 09/07/18 Current Visit: No Status: Chronic Qualifiers: Dementia type: Alzheimer's disease Alzheimer's disease onset: other onset Dementia behavioral disturbance: without behavioral disturbance Qualified Code(s): G30.8 - Other Alzheimer's disease; F02.80 - Dementia in other diseases classified elsewhere without behavioral disturbance - Plan The patient will be admitted to the hospital due to chest pain which sounds like her AICD went off. Trop I elevated, will order serial evaluation. Consult cardiology team for AICD interrogation and medication adjustment. - Advance Directives Does patient have a Living Will: Yes Does patient have a Durable POA for Healthcare: Yes - Code Status/Comfort Care Code Status: Do Not Resuscitate
[2018-09-14] MEDS ORDERED: ASPIRIN 81 MG CHEWABLE TABLET ONE (03:06)
[2018-09-14] MEDS ORDERED: ONDANSETRON 4 MG/2 ML VIAL IV PRN (04:14)
[2018-09-14] MEDS ORDERED: ACETAMINOPHEN 500 MG TAB PO PRN (04:14)
[2018-09-14] MEDS ORDERED: NA CHLORIDE 0.9% 500 ML IV ONE (05:55)
[2018-09-14] MEDS ORDERED: METOPROLOL TAR 25 MG TAB PO ONE (05:56)
--- NOTE | 2018-09-14 07:57 | EKG ---
Test Date: 2018-09-14 Test Time: 00:45:02 Autocad Operator: BUTCH MEASUREMENT RESULTS: Intervals: Rate: 110 NM: 100 QRSD: 108 QT: 364 QTc: 492 [place]: P: 57 NM: 100 QRS: -60 T: 121 INTERPRETIVE STATEMENTS: Sinus tachycardia with short NM with premature supraventricular complexes Left anterior fascicular block Left ventricular hypertrophy with repolarization abnormality Abnormal ECG Compared to ECG 09/05/2018 17:41:37 Atrial premature complex(es) now present Short NM interval now present Atrial-paced complex(es) or rhythm no longer present Ventricular-paced complex(es) or rhythm no longer present Prolonged QT interval no longer present Electronically Signed On 09-14-18 07:57:25 DIGITAL MEASUREMENT ADVISOR by Matt Temple
--- NOTE | 2018-09-14 08:52 | RAD REPORT ---
EXAM DESCRIPTION: RAD - Chest Single View - 09/14/2018 1:09 am CLINICAL HISTORY: CHEST PAIN Chest pain. COMPARISON: Chest Single View dated 09/05/2018; Chest Single View dated 08/21/2018; Chest Single View dated 08/19/2018; CHEST SINGLE VIEW dated 04/14/2014 FINDINGS: Portable technique limits examination quality. The lungs are emphysematous but grossly clear. The heart is upper limit normal in size with dual lead pacer device present. Portion of the left upper lobe lung parenchyma is obscured by the pacer pack. No displaced fractures. IMPRESSION: No acute intrathoracic process suspected.
[2018-09-14] MEDS: ENOXAPARIN 40 MG/0.4 ML SQ SCH (09:21)
--- NOTE | 2018-09-14 17:13 | CON ---
History Of Present Illness: [facility]. Diana [facility] in a [facility]. She had a defibrillator implanted s ometime between August 20, 2018 and now. The son is unable to tell as what hospital or what physic esther did it or what brand it is. She is in the hospital. She awakened at the [facility] and said s he had an explosion in her chest. So far, nobody has been able to find out what type of defibrillato r it is or have it interrogated. The patient does not have CAD. She has a cardiomyopathy and EF is in the 30s or the 40s. She has been made do not resuscitate. Lives in a fci. Home Medications: Zofran, metoprolol, atorvastatin, hydrocodone, Zioptan eye drops, Remeron, acetami nophen, and nystatin powder. Allergies: NO ALLERGIES ARE KNOWN. Physical Examination: General: The patient is alert, but completely confused. Does not even remember why she was brought to the hospital. Does not remember having chest pain or shortness of breath. Her defibrillator site looks like it is well healed. HEENT: Unremarkable. Lungs: Clear. Heart: Reveals a regular rate and rhythm. Vital Signs: Blood pressure 106/67, heart rate 106, O2 saturation 99% on room air, temperature 96.4. Impression And Plan: The patient had a defibrillator discharge. We need to interrogated to see if t here is some programming that could be done or medication we could add that might make things better, so she does not have inappropriate defibrillator shocks or if we find it was inappropriate shock and it rescued her for ventricular fibrillation. Perhaps she should be given amiodarone to take. Thank you very much for your kind referral of Ms. Diana. We will follow her with you. JADYN/BELKIS Voice ID: [id number] Report ID: [id number]
[2018-09-14] MEDS: MEGESTROL 400 MG/10 ML UCUP PO SCH ×2 (17:37→20:01)
[2018-09-14] MEDS: AMIODARONE HCL 200 MG TAB PO SCH (20:01)
--- NOTE | 2018-09-14 21:46 | PN ---
Mrs. Diana has just about stopped eating for the last 2 weeks. She says when she brings food up to her face, she just has no appetite. The family is aware of this. They have made her DNR. When we in terrogated her defibrillator, it showed that she has been shocked at least 12 times. She has numerou s episodes of AFib with rapid ventricular response and VT, all appropriately treated by the device. The device was implanted just a matter of a few weeks ago, less than a month ago. It begs the questi on whether we should either try to give her amiodarone or turn off the device. Either way, it would stop all the shocking and discomfort. We agreed that if the patient is able to eat, we will load her with amiodarone and try and have a fewer defibrillator shocks. It might be worthwhile to give her M egernie to see if we can get her to eat a little more. JADYN/BELKIS Voice ID: [id number] Report ID: [id number]
[2018-09-15] MEDS ORDERED: METOPROLOL TAR 25 MG TAB PO PRN (01:43)
[2018-09-15] MEDS ORDERED: HYDROCODONE/APAP 7.5/325 MG TAB PO PRN (01:43)
[2018-09-15] MEDS ORDERED: Magnesium Sulfate 2gm IVPB 2 G/50 ML BAG IV ONE ×2 (01:44→03:05)
[2018-09-15 02:19] LABS: BUN Blood Urea Nitrogen 13 mg/dL (7-18); Bicarbonate 25 mmol/L (21-32); Glucose Level 77 mg/dL (74-106); Magnesium 1.6 mg/dL (1.8-2.4); Potassium 3.5 mmol/L (3.5-5.1); Sodium Level 137 mmol/L (136-145)
[2018-09-15] MEDS ORDERED: METOPROLOL TARTRATE 5 MG/5 ML INJ IV STA (02:48)
[2018-09-15] MEDS ORDERED: NA CHLORIDE 0.9% 250 ML IV ONE (03:08)
[2018-09-15] MEDS ORDERED: METOPROLOL TARTRATE 5 MG/5 ML INJ IV ONE (03:30)
--- NOTE | 2018-09-15 05:30 | P.PN ---
Subjective Date of Service: 09/15/18 Patient having multiple arrhythmias. Got called by nursing staff to assess patient. Patient went into atrial fibrillation with rapid ventricular response. Reviewed chart and patient has been cardioverted times 12. She had pacemaker/defibrillator placed just 2-3 weeks ago. At that time she was having sustained ventricular tachyarrhythmias. Patient was life flighted. Reviewed patient's labs. Replace magnesium. Patient being loaded orally with amiodarone. Continue monitoring on telemetry. Review of Systems 10-point ROS is otherwise unremarkable Physical Examination - Vital Signs Temperature: 97.1 F Blood Pressure: 111/60 Pulse: 125 Respirations: 20 Pulse Ox (%): 97 - Physical Exam General: Alert, In no apparent distress, Oriented x3 Respiratory: Clear to auscultation bilaterally, Normal air movement Cardiovascular: No rubs, No murmurs, Irregular heart rate/rhythm Gastrointestinal: Normal bowel sounds, Hypoactive, Soft and benign, Non- distended Musculoskeletal: No clubbing Neurological: Normal gait, Normal speech, Normal tone, Sensation intact, Cranial nerves 3-12 intact Assessment & Plan - Problems (Diagnosis) (1) Hypomagnesemia Current Visit: Yes Status: Acute (2) Thrombocytopenia Onset Date: 09/07/18 Current Visit: No Status: Acute (3) Ventricular tachycardia Onset Date: 09/07/18 Current Visit: No Status: Acute (4) Atrial fibrillation with rapid ventricular response Current Visit: Yes Status: Acute - Plan Plan: 1. Replace magnesium 2. Continue amiodarone loading orally 3. Started on appetite stimulant; encourage patient to get out of bed and ambulate 4. Resume home medications including Lopressor; will discuss with Cardiology and monitor heart rate closely; patient with pacemaker in place which appears to be set at 70. 5. GI and DVT prophylaxis - Advance Directives Does patient have a Living Will: Yes Does patient have a Durable POA for Healthcare: No - Code Status/Comfort Care Code Status: Do Not Resuscitate Critical Care: No Time Spent Managing PTS Care (In Minutes): 45
[2018-09-15] MEDS: AMIODARONE HCL 200 MG TAB PO SCH ×2 (08:11→20:19)
[2018-09-15] MEDS: MEGESTROL 400 MG/10 ML UCUP PO SCH ×2 (08:12→20:19)
[2018-09-15] MEDS: ENOXAPARIN 40 MG/0.4 ML SQ SCH (08:12)
--- NOTE | 2018-09-15 12:27 | EKG ---
Test Date: 2018-09-15 Test Time: 01:10:20 Goal Umpire: ANDREW MEASUREMENT RESULTS: Intervals: Rate: 85 CT: 132 QRSD: 132 QT: 440 QTc: 523 [place]: P: 64 CT: 132 QRS: -60 T: 109 INTERPRETIVE STATEMENTS: Normal sinus rhythm Right bundle branch block Left anterior fascicular block Bifascicular block Left ventricular hypertrophy with repolarization abnormality Abnormal ECG Compared to ECG 09/14/2018 00:45:02 Right bundle-branch block now present Bifascicular block now present Sinus tachycardia no longer present Atrial premature complex(es) no longer present Short CT interval no longer present Electronically Signed On 09-15-18 12:25:42 [employer] by Reynaldo Parker
--- NOTE | 2018-09-15 13:29 | PN ---
Date of Progress Note: 09/15/2018 Ms. Diana is 77, recently had ICD in August of 2018, ejection fraction of 30%. DNR. Was seen by Dr. Temple for AICD discharge. AICD check report is still pending. We will await for that prior to making a decision whether to adjust her defibrillator or put her on amiodarone. I will discuss the c ase further with Dr. Santana after the AICD check is available. No further arrhythmias noted while she has been here. DEJAN/BELKIS Voice ID: [id number] Report ID: [id number]
--- NOTE | 2018-09-15 14:01 | P.PN ---
Subjective Date of Service: 09/15/18 Chief Complaint: chest pain Patient seen and examined at bedside with RN. Chart reviewed. Case discussed with cardiology. Detailed discussion with family member at bedside along with phone conversation with the medical power state attorney all in agreement of a hospice at this time. Will work with case management regarding safe discharge home with hospice and arranging for financial needs to get the care that patient needs at the house. Family meeting arranged for tomorrow morning. Review of Systems 10-point ROS is otherwise unremarkable Physical Examination - Vital Signs Temperature: 97.5 F Blood Pressure: 116/57 Pulse: 102 Respirations: 17 Pulse Ox (%): 95 - Physical Exam General: Alert, Oriented x2, Cachectic HEENT: Atraumatic, PERRLA, EOMI Neck: Supple, JVD not distended Respiratory: Clear to auscultation bilaterally, Normal air movement Cardiovascular: Regular rate/rhythm, Normal S1 S2 Gastrointestinal: Normal bowel sounds, No tenderness Musculoskeletal: No tenderness Integumentary: No rashes Neurological: Normal speech, Normal tone, Normal affect Lymphatics: No axilla or inguinal lymphadenopathy - Studies Medications List Reviewed: Yes Assessment And Plan - Current Problems (Diagnosis) (1) Ventricular tachycardia Onset Date: 09/07/18 Current Visit: No Status: Acute Plan: S/P defribillator -PO amiodarone at this time. -cardiology consulted. Appreciated recommendations at this time -a detailed discussion with family member today regarding inpatient hospice versus turning off the defibrillator versus continuing current care. -All in agreement for hospice care given the terminal illness and advanced dementia along with end-stage heart disease. Patient's family chose [facility]. -Will be having a family discussion tomorrow morning for final agreement consulted case management to help with the financial planning as well. (2) Afib Current Visit: Yes Status: Chronic Plan: Currently on p.o. amiodarone. Qualifiers: Atrial fibrillation type: chronic Qualified Code(s): I48.2 - Chronic atrial fibrillation (3) CHF (congestive heart failure) Current Visit: Yes Status: Chronic Qualifiers: Heart failure type: systolic Heart failure chronicity: chronic Qualified Code(s): I50.22 - Chronic systolic (congestive) heart failure (4) Pulmonary nodule Onset Date: 08/20/18 Current Visit: No Status: Chronic (5) Dementia Onset Date: 09/07/18 Current Visit: No Status: Chronic Qualifiers: Dementia type: Alzheimer's disease Alzheimer's disease onset: other onset Dementia behavioral disturbance: without behavioral disturbance Qualified Code(s): G30.8 - Other Alzheimer's disease; F02.80 - Dementia in other diseases classified elsewhere without behavioral disturbance (6) Tobacco abuse Onset Date: 08/20/18 Current Visit: No Status: Chronic Discharge Plan: Home Plan to discharge in: 48 Hours - Code Status/Comfort Care Code Status Assessed: Yes (DNR and DNI) Comfort Measures: Hospice Care Critical Care: No
[2018-09-15] MEDS ORDERED: MIRTAZAPINE 15 MG TAB PO SCH (21:00)
[2018-09-15] MEDS ORDERED: ATORVASTATIN 40 MG TAB PO SCH (21:00)
[2018-09-16] MEDS: AMIODARONE HCL 200 MG TAB PO SCH (08:47)
[2018-09-16] MEDS: MEGESTROL 400 MG/10 ML UCUP PO SCH (08:48)
[2018-09-16] MEDS: ENOXAPARIN 40 MG/0.4 ML SQ SCH (08:48)
--- NOTE | 2018-09-16 11:27 | P.DS ---
Admission Date: 09/14/18 Discharge Date: 09/16/18 Disposition: ROUTINE DISCHARGE Discharge Condition: GOOD Reason for Admission: chest pain Consultations: Cardiology - Problems (1) Ventricular tachycardia Onset Date: 09/07/18 Current Visit: No Status: Acute (2) Afib Current Visit: Yes Status: Chronic Qualifiers: Atrial fibrillation type: chronic Qualified Code(s): I48.2 - Chronic atrial fibrillation (3) CHF (congestive heart failure) Current Visit: Yes Status: Chronic Qualifiers: Heart failure type: systolic Heart failure chronicity: chronic Qualified Code(s): I50.22 - Chronic systolic (congestive) heart failure (4) Pulmonary nodule Onset Date: 08/20/18 Current Visit: No Status: Chronic (5) Dementia Onset Date: 09/07/18 Current Visit: No Status: Chronic Qualifiers: Dementia type: Alzheimer's disease Alzheimer's disease onset: other onset Dementia behavioral disturbance: without behavioral disturbance Qualified Code(s): G30.8 - Other Alzheimer's disease; F02.80 - Dementia in other diseases classified elsewhere without behavioral disturbance (6) Tobacco abuse Onset Date: 08/20/18 Current Visit: No Status: Chronic Brief History of Present Illness: Ms Diana is a 77 years old woman with history of Long QT syndrome s/p AICD placement, dementia, HTN, who is resident from a local assisted, came to the hospital complaining of chest pain. She describe that she felt like an explosion in her chest. She denied SOB, nausea, vomiting, diaphoresis or palpitations. She has never had this feeling in the past. Lab work remarkable for elevated trop I 0.13, Leukocytosis 13.0K, EKG sinus tachycardia without ST abnormalities. Hospital Course: Overall during the hospital stay patient patient remained stable Patient was initially admitted to the hospital for chest pain after she noted that her defibrillator fired at the assisted and was brought over to the hospital for further care. Cardiology was consulted. Pacemaker/defibrillator was interrogated. Patient did have several ventricular tachycardia and atrial fibrillation as rhythm where her defibrillator/pacemaker did fire and got the heart back to rhythm. Cardiology at that time suggested the patient be placed on amiodarone and Megace for appetite stimulant. Patient was placed on amiodarone continued to be in atrial fibrillation while here in the hospital. Detailed discussion happened with the family member regarding the patient's advanced dementia, poor appetite, advanced heart disease and terminal illness with prognosis that is very poor. Family at that time and made a decision to switch patient to inpatient hospice for further care. Cardiology and family medicine all in agreement for the change and patient was switched over to inpatient hospice. Patient defibrillator will be turned off once patient is admitted under hospice care. I will be following patient while here in the hospital under hospice care and when discharged home as well. Vital Signs/Physical Exam: Temp Pulse Resp BP Pulse Ox 97.0 F 82 16 149/63 H 100 09/16/18 08:00 09/16/18 08:00 09/16/18 08:00 09/16/18 08:00 09/16/18 08:00 General: Alert, In no apparent distress HEENT: Atraumatic, PERRLA, EOMI Neck: Supple, JVD not distended Respiratory: Clear to auscultation bilaterally, Normal air movement Cardiovascular: Regular rate/rhythm, Normal S1 S2 Gastrointestinal: Normal bowel sounds, No tenderness Musculoskeletal: No tenderness Integumentary: No rashes Neurological: Normal speech, Normal tone, Normal affect Lymphatics: No axilla or inguinal lymphadenopathy Laboratory Data at Discharge: WBC 13.0 K/uL (4.3-10.9) H D 09/14/18 01:00 Hgb 13.9 g/dL (12.0-15.0) 09/14/18 01:00 Hct 40.7 % (36.0-45.0) 09/14/18 01:00 Plt Count 126 K/uL (152-406) L D 09/14/18 01:00 PT 12.5 SECONDS (9.5-12.5) 09/14/18 01:00 INR 1.06 09/14/18 01:00 Sodium 137 mmol/L (136-145) 09/15/18 01:53 Potassium 3.5 mmol/L (3.5-5.1) 09/15/18 01:53 BUN 13 mg/dL (7-18) 09/15/18 01:53 Creatinine 0.60 mg/dL (0.55-1.3) 09/15/18 01:53 Glucose 77 mg/dL (74-106) 09/15/18 01:53 Magnesium 1.6 mg/dL (1.8-2.4) L 09/15/18 01:53 Troponin I 0.08 ng/mL (0.0-0.045) H 09/14/18 20:13 Home Medications: Atorvastatin Calcium [Lipitor] 40 mg PO BEDTIME 09/06/18 Metoprolol Tartrate [Lopressor*] 12.5 mg PO Q12HP PRN 09/06/18 Ondansetron HCl [Zofran] 4 mg PO Q12HP PRN 09/06/18 Hydrocodone 7.5/APAP 325 [[place] 7.5/325 mg*] 1 tab PO Q6H PRN tab 09/08/18 Acetaminophen [Tylenol] 650 mg PO Q6HP PRN 09/14/18 Mirtazapine [Remeron] 15 mg PO BEDTIME 09/14/18 Nystatin Powder [Mycostatin (Powder)*] 1 appl TOP Q12HP PRN 09/14/18 Tafluprost/Pf [Zioptan 0.0015% Eye Drops] 1 gtt OP BEDTIME 09/14/18 Diet: Regular Activity: Ad bess
[2018-09-16 11:55] VITALS: O2SAT 95
[2018-09-16 12:28] VITALS: BP 121/63; TEMP 97.1
== END 2018-09-16 13:36 | disposition hospice, inpatient (51) ==
LOC: ER 00:31 → ERHOLD 02:55 → 2ND 04:11
PROVIDERS: ADMIT Internal Medicine; ATTEND Internal Medicine
DX: I47.2 Ventricular tachycardia (principal); I48.2 Chronic atrial fibrillation; E83.42 Hypomagnesemia; Z66 Do not resuscitate; I10 Essential (primary) hypertension; F03.90 Unspecified dementia, unspecified severity, without behavioral disturbance, psychotic disturbance, mood disturbance, and anxiety; I50.22 Chronic systolic (congestive) heart failure; R91.1 Solitary pulmonary nodule; Z95.810 Presence of automatic (implantable) cardiac defibrillator; I11.0 Hypertensive heart disease with heart failure
CPT/HCPCS: 36415 ×2; 71045; 80048 ×2; 83735 ×2; 83880; 84484 ×4; 85025; 85610; 93005 ×2; 96360; 99285; G0378 ×2; J1650 ×3; J2405; J3475 ×2

== ENCOUNTER 2018-09-16 14:12 | Inpatient (IN) | payer OTHER ==
--- OUTSIDE RECORDS SUMMARY | 2018-09-16 14:25 | XMS REPORT | Clinical Summary ---
:1940 Author Organization [facility] Address [address] [place] [address] Care Team Providers Name Role Phone Unavailable [...] Not on file Results Not on fileafter 09/15/2017
[2018-09-16] MEDS ORDERED: MORPHINE 4 MG/ML SYR IV PRN (14:30)
[2018-09-16] MEDS ORDERED: LORazepam 2 MG/ML VIAL IV PRN (14:30)
[2018-09-16] MEDS ORDERED: ACETAMINOPHEN 650MG/RECT SUPP PR PRN (14:34)
[2018-09-16] MEDS ORDERED: BISACODYL 10 MG RECTAL SUPP PR PRN (14:34)
[2018-09-16] MEDS ORDERED: SCOPOLAMINE HYDROBROMIDE PATCH TD PRN ×2 (14:44)
[2018-09-17 03:12] VITALS: BMI 19.9
[2018-09-17] MEDS: ONDANSETRON 4 MG/2 ML VIAL IV PRN (16:21)
[2018-09-17] MEDS ORDERED: PROMETHAZINE 25 MG/ML VIAL IV PRN (18:44)
[2018-09-18] MEDS: ONDANSETRON 4 MG/2 ML VIAL IV PRN ×3 (10:42→22:56)
[2018-09-18] MEDS: PROMETHAZINE 25 MG/ML VIAL IV SCH ×2 (11:52→17:29)
--- NOTE | 2018-09-18 12:51 | P.HP ---
Certification for Inpatient Patient admitted to: Inpatient With expected LOS: >2 Midnights Patient will require the following post-hospital care: None Practitioner: I am a practitioner with admitting privileges, knowledge of patient current condition, hospital course, and medical plan of care. Services: Services provided to patient in accordance with Admission requirements found in Title 42 Section 412.3 of the Code of Federal Regulations Patient History Date of Service: 09/16/18 History of Present Illness: 77-year-old female with significant past medical history who was recently admitted to the hospital for chest pain most likely from defibrillator firing due to ventricular tachycardia the patient was experiencing. A super to the discharge summary from previous admission for further details. Patient now admitted to hospice care with prognosis of less than 6 months. Defibrillator has been turned off at this time. Patient has pain medication and anxiety medication on board at this time as well Allergies No Known Drug Allergies Allergy (Verified 08/19/18 15:15) Unknown Home Medications: Atorvastatin Calcium [Lipitor] 40 mg PO BEDTIME 09/06/18 Metoprolol Tartrate [Lopressor*] 12.5 mg PO Q12HP PRN 09/06/18 Ondansetron HCl [Zofran] 4 mg PO Q12HP PRN 09/06/18 Hydrocodone 7.5/APAP 325 [[place] 7.5/325 mg*] 1 tab PO Q6H PRN tab 09/08/18 Acetaminophen [Tylenol] 650 mg PO Q6HP PRN 09/14/18 Mirtazapine [Remeron] 15 mg PO BEDTIME 09/14/18 Nystatin Powder [Mycostatin (Powder)*] 1 appl TOP Q12HP PRN 09/14/18 Tafluprost/Pf [Zioptan 0.0015% Eye Drops] 1 gtt OP BEDTIME 09/14/18 - Past Medical/Surgical History Diabetic: No -: Orthostatics hypotension -: Dyslipidemia -: Urinary incontinence -: Vertigo -: Dementia -: Dementia -: Cystoscopy and bladder lift/bladder suspension -: hysterectomy -: Cholecystectomy -: breast surgery -: knee surgery -: eye surgery - Family History Father -: Heart disease, Lung disease Notes: PTB, lung cancer Mother -: Heart disease, Cancer Notes: colon cancer - Social History Alcohol use: No CD- Drugs: No Caffeine use: Yes Review of Systems 10-point ROS is otherwise unremarkable Physical Examination - Vital Signs Temperature: 97.1 F Blood Pressure: 95/54 Pulse: 151 Respirations: 26 Pulse Ox (%): 96 - Physical Exam General: Alert, In no apparent distress, Cachectic HEENT: Atraumatic, PERRLA, Mucous membr. moist/pink, EOMI, Sclerae nonicteric Neck: Supple, 2+ carotid pulse no bruit, No LAD, Without JVD or thyroid abnormality Respiratory: Clear to auscultation bilaterally, Normal air movement Cardiovascular: Regular rate/rhythm, Normal S1 S2 Gastrointestinal: Normal bowel sounds, No tenderness Musculoskeletal: No tenderness Integumentary: No rashes Neurological: Normal gait, Normal speech, Normal strength at 5/5 x4 extr, Normal tone, Normal affect Lymphatics: No axilla or inguinal lymphadenopathy Assessment and Plan - Problems (Diagnosis) (1) Encounter for hospice care Current Visit: Yes Status: Acute Plan: Admitted to inpatient hospice at this time. Pain medication and anxiety medications prescribed already. (2) Encounter for disabling ICD in hospice patient Current Visit: Yes Status: Acute Plan: ICD turned off since 09/16/18 - Advance Directives Does patient have a Living Will: Yes Does patient have a Durable POA for Healthcare: No
--- NOTE | 2018-09-18 12:52 | P.PN ---
Subjective Date of Service: 09/18/18 Patient seen and examined at bedside with RN. Chart reviewed. Patient continues to have nausea vomiting overnight. Pain medication and nausea medication adjusted at this time. Currently resting comfortably. Review of Systems 10-point ROS is otherwise unremarkable Physical Examination - Vital Signs Temperature: 97.1 F Blood Pressure: 95/54 Pulse: 151 Respirations: 26 Pulse Ox (%): 96 - Physical Exam General: Alert, In no apparent distress HEENT: Atraumatic, PERRLA, EOMI Neck: Supple, JVD not distended Respiratory: Clear to auscultation bilaterally, Normal air movement Cardiovascular: Regular rate/rhythm, Normal S1 S2 Gastrointestinal: Normal bowel sounds, No tenderness Musculoskeletal: No tenderness Integumentary: No rashes Neurological: Normal speech, Normal tone, Normal affect Lymphatics: No axilla or inguinal lymphadenopathy - Studies Medications List Reviewed: Yes Assessment And Plan - Current Problems (Diagnosis) (1) Encounter for hospice care Current Visit: Yes Status: Acute (2) Encounter for disabling ICD in hospice patient Current Visit: Yes Status: Acute - Plan Patient resting comfortably at this time. Most likely patient will be able to be discharged home with hospice on Friday. Currently pain medication/anxiety medication/nausea medication on board to make patient comfortable. Discharge Plan: Home Plan to discharge in: 48 Hours - Code Status/Comfort Care Code Status Assessed: Yes Critical Care: No
[2018-09-18] MEDS ORDERED: HYDROMORPHONE HCL 0.5 MG/0.5 ML INJ IV ONE (19:40)
[2018-09-19] MEDS: PROMETHAZINE 25 MG/ML VIAL IV SCH ×2 (00:14→05:26)
[2018-09-19] MEDS ORDERED: LORAZEPAM 0.5 MG TABLET SL PRN (09:13)
[2018-09-19] MEDS ORDERED: LORAZEPAM 1 MG TABLET PO PRN (09:14)
[2018-09-19] MEDS ORDERED: MORPHINE 20 MG/ML SL PRN (09:24)
[2018-09-19] MEDS ORDERED: PROMETHAZINE 25 MG/SUPP PR SCH (12:00)
[2018-09-19] MEDS: ONDANSETRON 4 MG (ODT) TAB SL PRN ×2 (13:34→16:57)
[2018-09-19] MEDS: PROMETHAZINE 25 MG/SUPP PR SCH ×3 (15:32→23:23)
[2018-09-19] MEDS: HALOPERIDOL 5 MG TAB PO PRN (18:15)
[2018-09-20] MEDS: PROMETHAZINE 25 MG/SUPP PR SCH ×7 (03:32→23:49)
[2018-09-20] MEDS: HALOPERIDOL 5 MG TAB PO PRN ×2 (10:27→12:55)
[2018-09-20 10:29] VITALS: TEMP 97.1
[2018-09-20] MEDS: ONDANSETRON 4 MG (ODT) TAB SL PRN ×2 (14:15→18:41)
[2018-09-20] MEDS: LORAZEPAM TOP SCH (21:55)
[2018-09-20] MEDS: HALOPERIDOL TOP SCH (21:55)
[2018-09-20] MEDS: DIPHENHYDRAMINE TOP SCH (21:55)
[2018-09-21] MEDS: DIPHENHYDRAMINE TOP SCH ×4 (01:44→14:13)
[2018-09-21] MEDS: LORAZEPAM TOP SCH ×4 (01:44→14:13)
[2018-09-21] MEDS: HALOPERIDOL TOP SCH ×4 (01:44→14:13)
[2018-09-21] MEDS: PROMETHAZINE 25 MG/SUPP PR SCH ×3 (03:28→13:11)
[2018-09-21 08:49] VITALS: BP 130/60
[2018-09-21 11:41] VITALS: O2SAT 98
== END 2018-09-21 14:30 | disposition hospice, home (50) | DRG 293 ==
LOC: 2ND 14:12
PROVIDERS: ADMIT Family Medicine; ATTEND Family Medicine
DX: I50.84 End stage heart failure (principal); Z51.5 Encounter for palliative care; I95.1 Orthostatic hypotension; E78.5 Hyperlipidemia, unspecified; F03.90 Unspecified dementia, unspecified severity, without behavioral disturbance, psychotic disturbance, mood disturbance, and anxiety; N39.41 Urge incontinence; R11.2 Nausea with vomiting, unspecified; Z66 Do not resuscitate; Z95.810 Presence of automatic (implantable) cardiac defibrillator
CPT/HCPCS: J1170; J2405; J2550